=== PATIENT | female | born 1985 | race Caucasian/White ===

== ENCOUNTER 2017-08-05 02:03 | Inpatient (IN) | payer BC, OTHER ==
[2017-08-05] MEDS ORDERED: Ketorolac 30 MG/ML SDV IVPUSH ONE (02:21)
[2017-08-05] MEDS: Ondansetron 4 MG/2 ML SDV IVPUSH ONE ×2 (02:33→06:14)
[2017-08-05] MEDS ORDERED: HYDROmorphone 1 MG/ML Syringe IVPUSH ONE (03:02)
[2017-08-05 03:04] LABS: CHLORIDE,CL 100 mmol/L (98-107); SODIUM,NA 136 mmol/L (136-145)
[2017-08-05] MEDS ORDERED: Sodium Chloride 0.9% 1,000 ML IV ONE (03:22)
[2017-08-05] MEDS ORDERED: cefTRIAXone 1 GM in Premix Bag 1 BAG IV ONE (04:06)
--- NOTE | 2017-08-05 04:10 | EDM.PDOC ---
ED HPI GENERAL MEDICAL PROBLEM - General Chief Complaint: Flank Pain Stated Complaint: BACK PAIN Time Seen by Provider: 08/05/17 04:06 - History of Present Illness INITIAL COMMENTS - FREE TEXT/NARRATIVE: HISTORY AND PHYSICAL: History of present illness: Patient 31-year-old female with history of bilateral flank pain frequency discomfort with urination worse over last 24 hours she started tactile fever nausea but no vomiting. Review of systems: As per history of present illness and below otherwise all systems reviewed and negative. Past medical history: As per history of present illness and as reviewed below otherwise noncontributory. Surgical history: As per history of present illness and as reviewed below otherwise noncontributory. Social history: No reported history of drug or alcohol abuse. Family history: As per history of present illness and as reviewed below otherwise noncontributory. Physical exam: HEENT: Atraumatic, normocephalic, pupils reactive, negative for conjunctival pallor or scleral icterus, mucous membranes moist, throat clear, neck supple, nontender, trachea midline. Lungs: Clear to auscultation, breath sounds equal bilaterally, chest nontender. Heart: S1S2, regular, negative for clicks, rubs, or JVD. Abdomen: Soft, nondistended, nontender. Negative for masses or hepatosplenomegaly. Bilateral costovertebral tenderness. Pelvis: Stable nontender. Genitourinary: Deferred. Rectal: Deferred. Extremities: Atraumatic, negative for cords or calf pain. Neurovascular unremarkable. Neuro: Awake, alert, oriented. Cranial nerves II through XII unremarkable. Cerebellum unremarkable. Motor and sensory unremarkable throughout. Exam nonfocal. Diagnostics: CBC CMP UA urine culture CT abdomen and pelvis culture 2 Therapeutics: Normal saline 1 L bolus Rocephin 1 g IV Impression: #1 pyelonephritis Definitive disposition and diagnosis as appropriate pending reevaluation and review of above. 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: , Spontaneous Musculoskeletal History: Reports: None Neurological History: Reports: None Psychiatric History: Reports: None Endocrine/Metabolic History: Reports: Obesity/BMI 30+ Hematologic History: Reports: Anemia Immunologic History: Reports: None Oncologic (Cancer) History: Reports: None Dermatologic History: Reports: None - Past Surgical History Head Surgeries/Procedures: Reports: None HEENT Surgical History: Reports: Myringotomy w Tube(s), Other (See Below) Female Surgical History: Reports: Section Musculoskeletal Surgical History: Reports: None Social & Family History - Family History Family Medical History: Noncontributory - Tobacco Use Smoking Status *Q: Never Smoker Second Hand Smoke Exposure: No - Caffeine Use Caffeine Use: Reports: Soda - Recreational Drug Use Recreational Drug Use: No Drug Use in Last 12 Months: No ED ROS GENERAL - Review of Systems Review Of Systems: ROS reveals no pertinent complaints other than HPI. ED EXAM, GI/ABD - Physical Exam Exam: See Below (The dictation) Course - Vital Signs Last Recorded V/S: Last Vital Signs Temp 36.4 C 08/05/17 03:00 Pulse 102 H 08/05/17 04:00 Resp 19 08/05/17 03:00 BP 111/70 08/05/17 03:00 Pulse Ox 97 08/05/17 03:00 - Orders/Labs/Meds Orders: Active Orders 24 hr Category Date Time Status Abdomen Pelvis wo Cont [CT] Stat Exams 08/05/17 02:20 Taken CULTURE URINE [RM] Stat Lab 08/05/17 02:40 Ordered HCG QUALITATIVE,URINE [URCHEM] Stat Lab 08/05/17 02:25 Ordered UA W/MICROSCOPIC [URIN] Stat Lab 08/05/17 02:25 Ordered Sodium Chloride 0.9% [Normal Saline] 1,000 ml Med 08/05/17 03:22 Active IV .Bolus cefTRIAXone [Rocephin in Dextrose,Iso-Osm 1 GM/50 ML] 1 Med 08/05/17 04:06 Active gm Premix Bag 1 bag IV ONETIME Medication Orders Sodium Chloride (Normal Saline) 1,000 mls @ 999 mls/hr IV .Bolus ONE Stop: 08/05/17 04:22 Last Admin: 08/05/17 02:30 Dose: 999 mls/hr Ceftriaxone Sodium/Dextrose 1 (gm/ Premix) 50 mls @ 100 mls/hr IV ONETIME ONE Stop: 08/05/17 04:35 Labs: Laboratory Tests 08/05/17 08/05/17 08/05/17 Range/Units 02:25 02:25 02:37 WBC 17.32 H (4.0-11.0) K/uL RBC 4.81 (4.30-5.90) M/uL Hgb 13.0 (12.0-16.0) g/dL Hct 38.7 (36.0-46.0) % MCV 80.5 (80.0-98.0) fL MCH 27.0 (27.0-32.0) pg MCHC 33.6 (31.0-37.0) g/dL RDW Std Deviation 42.2 (28.0-62.0) fl RDW Coeff of Jim 14 (11.0-15.0) % Plt Count 381 (150-400) K/uL MPV 9.10 (7.40-12.00) fL Neut % (Auto) 72.6 (48.0-80.0) % Lymph % (Auto) 14.7 L (16.0-40.0) % [place] % (Auto) 12.3 (0.0-15.0) % Eos % (Auto) 0.2 (0.0-7.0) % Baso % (Auto) 0.2 (0.0-1.5) % Neut # (Auto) 12.6 H (1.4-5.7) K/uL Lymph # (Auto) 2.6 H (0.6-2.4) K/uL [place] # (Auto) 2.1 H (0.0-0.8) K/uL Eos # (Auto) 0.0 (0.0-0.7) K/uL Baso # (Auto) 0.0 (0.0-0.1) K/uL Nucleated RBC % 0.0 /100WBC Nucleated RBCs # 0 K/uL Sodium (136-145) mmol/L Potassium (3.5-5.1) mmol/L Chloride (98-107) mmol/L Carbon Dioxide (21.0-32.0) mmol/L BUN (7.0-18.0) mg/dL Creatinine (0.6-1.0) mg/dL Est Cr Clr Drug Dosing mL/min Estimated GFR (MDRD) ml/min Glucose (74-106) mg/dL Calcium (8.5-10.1) mg/dL Total Bilirubin (0.2-1.0) mg/dL AST (15-37) IU/L ALT (14-63) IU/L Alkaline Phosphatase (46-116) U/L Total Protein (6.4-8.2) g/dL Albumin (3.4-5.0) g/dL Globulin (2.0-3.5) g/dL Albumin/Globulin Ratio (1.3-2.8) Urine Color YELLOW Urine Appearance SLT CLOUDY Urine pH 5.5 (5.0-8.0) Ur Specific [place] 1.015 (1.001-1.035) Urine Protein 100 (NEGATIVE) mg/dL Urine Glucose (UA) NEGATIVE (NEGATIVE) mg/dL Urine Ketones NEGATIVE (NEGATIVE) mg/dL Urine Occult Blood MODERATE (NEGATIVE) Urine Nitrite POSITIVE H (NEGATIVE) Urine Bilirubin NEGATIVE (NEGATIVE) Urine Urobilinogen 0.2 (<2.0) EU/dL Ur Leukocyte Esterase SMALL (NEGATIVE) Urine RBC 1-3 (0-2/HPF) Urine WBC 40-50 (0-5/HPF) Ur Epithelial Cells FEW (NONE-FEW) Urine Bacteria 3+ H (NEGATIVE) Urine HCG, Qual NEGATIVE (NEGATIVE) 08/05/17 Range/Units 02:37 WBC (4.0-11.0) K/uL RBC (4.30-5.90) M/uL Hgb (12.0-16.0) g/dL Hct (36.0-46.0) % MCV (80.0-98.0) fL MCH (27.0-32.0) pg MCHC (31.0-37.0) g/dL RDW Std Deviation (28.0-62.0) fl RDW Coeff of Jim (11.0-15.0) % Plt Count (150-400) K/uL MPV (7.40-12.00) fL Neut % (Auto) (48.0-80.0) % Lymph % (Auto) (16.0-40.0) % [place] % (Auto) (0.0-15.0) % Eos % (Auto) (0.0-7.0) % Baso % (Auto) (0.0-1.5) % Neut # (Auto) (1.4-5.7) K/uL Lymph # (Auto) (0.6-2.4) K/uL [place] # (Auto) (0.0-0.8) K/uL Eos # (Auto) (0.0-0.7) K/uL Baso # (Auto) (0.0-0.1) K/uL Nucleated RBC % /100WBC Nucleated RBCs # K/uL Sodium 136 (136-145) mmol/L Potassium 3.8 (3.5-5.1) mmol/L Chloride 100 (98-107) mmol/L Carbon Dioxide 21.2 (21.0-32.0) mmol/L BUN 13 (7.0-18.0) mg/dL Creatinine 1.0 (0.6-1.0) mg/dL Est Cr Clr Drug Dosing 74.69 mL/min Estimated GFR (MDRD) > 60.0 ml/min Glucose 125 H (74-106) mg/dL Calcium 9.6 (8.5-10.1) mg/dL Total Bilirubin 0.6 (0.2-1.0) mg/dL AST 10 L (15-37) IU/L ALT 12 L (14-63) IU/L Alkaline Phosphatase 79 (46-116) U/L Total Protein 8.2 (6.4-8.2) g/dL Albumin 3.1 L (3.4-5.0) g/dL Globulin 5.1 H (2.0-3.5) g/dL Albumin/Globulin Ratio 0.6 L (1.3-2.8) Urine Color Urine Appearance Urine pH (5.0-8.0) Ur Specific [place] (1.001-1.035) Urine Protein (NEGATIVE) mg/dL Urine Glucose (UA) (NEGATIVE) mg/dL Urine Ketones (NEGATIVE) mg/dL Urine Occult Blood (NEGATIVE) Urine Nitrite (NEGATIVE) Urine Bilirubin (NEGATIVE) Urine Urobilinogen (<2.0) EU/dL Ur Leukocyte Esterase (NEGATIVE) Urine RBC (0-2/HPF) Urine WBC (0-5/HPF) Ur Epithelial Cells (NONE-FEW) Urine Bacteria (NEGATIVE) Urine HCG, Qual (NEGATIVE) Meds: Medications Generic Name Dose Route Start Last Admin Trade Name Freq PRN Reason Stop Dose Admin Sodium Chloride 1,000 mls @ 999 mls/hr 08/05/17 03:22 08/05/17 02:30 Normal Saline IV 08/05/17 04:22 999 mls/hr .Bolus ONE Administration Ceftriaxone Sodium/Dextrose 1 50 mls @ 100 mls/hr 08/05/17 04:06 gm/ Premix IV 08/05/17 04:35 ONETIME ONE Discontinued Medications Generic Name Dose Route Start Last Admin Trade Name Freq PRN Reason Stop Dose Admin Hydromorphone HCl 1 mg 08/05/17 03:02 08/05/17 03:16 Dilaudid IVPUSH 08/05/17 03:03 1 mg ONETIME ONE Administration Ketorolac Tromethamine 30 mg 08/05/17 02:21 08/05/17 02:34 Toradol IVPUSH 08/05/17 02:22 30 mg ONETIME ONE Administration Ondansetron HCl 4 mg 08/05/17 02:22 08/05/17 02:33 Zofran IVPUSH 08/05/17 02:23 4 mg ONETIME ONE Administration Departure - Departure Time of Disposition: 04:10 Disposition: Home, Self-Care 01 Condition: Good Clinical Impression: Pyelonephritis - Discharge Information Referrals: PCP,None [Primary Care Provider] - - My Orders Last 24 Hours: My Active Orders 08/05/17 02:20 Abdomen Pelvis wo Cont [CT] Stat 08/05/17 02:25 HCG QUALITATIVE,URINE [URCHEM] Stat UA W/MICROSCOPIC [URIN] Stat 08/05/17 02:40 CULTURE URINE [RM] Stat 08/05/17 03:22 Sodium Chloride 0.9% [Normal Saline] 1,000 ml IV .Bolus 08/05/17 04:06 cefTRIAXone [Rocephin in Dextrose,Iso-Osm 1 GM/50 ML] 1 gm Premix Bag 1 bag IV ONETIME - Assessment/Plan Last 24 Hours: My Active Orders 08/05/17 02:20 Abdomen Pelvis wo Cont [CT] Stat 08/05/17 02:25 HCG QUALITATIVE,URINE [URCHEM] Stat UA W/MICROSCOPIC [URIN] Stat 08/05/17 02:40 CULTURE URINE [RM] Stat 08/05/17 03:22 Sodium Chloride 0.9% [Normal Saline] 1,000 ml IV .Bolus 08/05/17 04:06 cefTRIAXone [Rocephin in Dextrose,Iso-Osm 1 GM/50 ML] 1 gm Premix Bag 1 bag IV ONETIME
[2017-08-05] MEDS: Acetaminophen 325 MG Tab PO PRN ×3 (11:24→19:30)
--- NOTE | 2017-08-05 15:52 | PCM.HP ---
H&P History of Present Illness - General Admit Problem/Dx: Admission Diagnosis/Problem Admission Diagnosis/Problem Pyelonephritis - History of Present Illness Initial Comments - Free Text/Narative: 31 yo female who presented with bilateral flank pain, subjective fevers and dysuria. CT scan of abdomen performed in ED reported left perirenal stranding as well as bladder wall thickening, no obstructive uropathy. left flank Pain Score (Numeric/FACES): 4 - Related Data Allergies/Adverse Reactions: Allergies Allergy/AdvReac Type Severity Reaction Status Date / Time ibuprofen Allergy Nausea and Verified 08/05/17 02:16 Vomiting Home Medications: Home Meds Control 08/05/17 [History] Cholecalciferol (Vitamin D3) [Vitamin D] 1 tab PO DAILY 08/05/17 [History] Past Medical History - Past Health History Medical/Surgical History: Denies Medical/Surgical History HEENT History: Reports: Impaired Vision Cardiovascular History: Reports: None Respiratory History: Reports: None Gastrointestinal History: Reports: None Genitourinary History: Reports: UTI, Recurrent 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: , Spontaneous Musculoskeletal History: Reports: None Neurological History: Reports: None Psychiatric History: Reports: None Endocrine/Metabolic History: Reports: Obesity/BMI 30+ Hematologic History: Reports: Anemia Immunologic History: Reports: None Oncologic (Cancer) History: Reports: None Dermatologic History: Reports: None - Infectious Disease History Infectious Disease History: Reports: None - Past Surgical History Head Surgeries/Procedures: Reports: None HEENT Surgical History: Reports: Myringotomy w Tube(s), Other (See Below) Cardiovascular Surgical History: Reports: None Respiratory Surgical History: Reports: None GI Surgical History: Reports: None Female Surgical History: Reports: Section Endocrine Surgical History: Reports: None Musculoskeletal Surgical History: Reports: None Social & Family History - Family History Family Medical History: Noncontributory - Tobacco Use Smoking Status *Q: Never Smoker Second Hand Smoke Exposure: No - Caffeine Use Caffeine Use: Reports: Soda - Recreational Drug Use Recreational Drug Use: No Drug Use in Last 12 Months: No H&P Review of Systems - Review of Systems: Review Of Systems: ROS reveals no pertinent complaints other than HPI. Exam - Exam Exam: See Below - Vital Signs Vital Signs: Last Vital Signs Temp 36.6 C 08/05/17 15:44 Pulse 92 08/05/17 15:44 Resp 18 04/01/18 15:44 BP 117/71 08/05/17 15:44 Pulse Ox 98 08/05/17 15:44 Weight: 117.7 kg - Exam General: Alert, Oriented HEENT: Mucosa Moist & [place] Lungs: Clear to Auscultation, Normal Respiratory Effort Cardiovascular: Regular Rate, Regular Rhythm GI/Abdominal Exam: Soft, Non-Tender Back Exam: CVA Tenderness (L), CVA Tenderness (R) Skin: Warm, Dry, Intact - Patient Data Lab Results Last 24 hrs: Laboratory Results - last 24 hr 08/05/17 08/05/17 08/05/17 Range/Units 02:25 02:25 02:37 WBC 17.32 H (4.0-11.0) K/uL RBC 4.81 (4.30-5.90) M/uL Hgb 13.0 (12.0-16.0) g/dL Hct 38.7 (36.0-46.0) % MCV 80.5 (80.0-98.0) fL MCH 27.0 (27.0-32.0) pg MCHC 33.6 (31.0-37.0) g/dL RDW Std Deviation 42.2 (28.0-62.0) fl RDW Coeff of Jim 14 (11.0-15.0) % Plt Count 381 (150-400) K/uL MPV 9.10 (7.40-12.00) fL Neut % (Auto) 72.6 (48.0-80.0) % Lymph % (Auto) 14.7 L (16.0-40.0) % [place] % (Auto) 12.3 (0.0-15.0) % Eos % (Auto) 0.2 (0.0-7.0) % Baso % (Auto) 0.2 (0.0-1.5) % Neut # (Auto) 12.6 H (1.4-5.7) K/uL Lymph # (Auto) 2.6 H (0.6-2.4) K/uL [place] # (Auto) 2.1 H (0.0-0.8) K/uL Eos # (Auto) 0.0 (0.0-0.7) K/uL Baso # (Auto) 0.0 (0.0-0.1) K/uL Nucleated RBC % 0.0 /100WBC Nucleated RBCs # 0 K/uL Sodium (136-145) mmol/L Potassium (3.5-5.1) mmol/L Chloride (98-107) mmol/L Carbon Dioxide (21.0-32.0) mmol/L BUN (7.0-18.0) mg/dL Creatinine (0.6-1.0) mg/dL Est Cr Clr Drug Dosing mL/min Estimated GFR (MDRD) ml/min Glucose (74-106) mg/dL Calcium (8.5-10.1) mg/dL Total Bilirubin (0.2-1.0) mg/dL AST (15-37) IU/L ALT (14-63) IU/L Alkaline Phosphatase (46-116) U/L Total Protein (6.4-8.2) g/dL Albumin (3.4-5.0) g/dL Globulin (2.0-3.5) g/dL Albumin/Globulin Ratio (1.3-2.8) Urine Color YELLOW Urine Appearance SLT CLOUDY Urine pH 5.5 (5.0-8.0) Ur Specific [place] 1.015 (1.001-1.035) Urine Protein 100 (NEGATIVE) mg/dL Urine Glucose (UA) NEGATIVE (NEGATIVE) mg/dL Urine Ketones NEGATIVE (NEGATIVE) mg/dL Urine Occult Blood MODERATE (NEGATIVE) Urine Nitrite POSITIVE H (NEGATIVE) Urine Bilirubin NEGATIVE (NEGATIVE) Urine Urobilinogen 0.2 (<2.0) EU/dL Ur Leukocyte Esterase SMALL (NEGATIVE) Urine RBC 1-3 (0-2/HPF) Urine WBC 40-50 (0-5/HPF) Ur Epithelial Cells FEW (NONE-FEW) Urine Bacteria 3+ H (NEGATIVE) Urine HCG, Qual NEGATIVE (NEGATIVE) 08/05/17 Range/Units 02:37 WBC (4.0-11.0) K/uL RBC (4.30-5.90) M/uL Hgb (12.0-16.0) g/dL Hct (36.0-46.0) % MCV (80.0-98.0) fL MCH (27.0-32.0) pg MCHC (31.0-37.0) g/dL RDW Std Deviation (28.0-62.0) fl RDW Coeff of Jim (11.0-15.0) % Plt Count (150-400) K/uL MPV (7.40-12.00) fL Neut % (Auto) (48.0-80.0) % Lymph % (Auto) (16.0-40.0) % [place] % (Auto) (0.0-15.0) % Eos % (Auto) (0.0-7.0) % Baso % (Auto) (0.0-1.5) % Neut # (Auto) (1.4-5.7) K/uL Lymph # (Auto) (0.6-2.4) K/uL [place] # (Auto) (0.0-0.8) K/uL Eos # (Auto) (0.0-0.7) K/uL Baso # (Auto) (0.0-0.1) K/uL Nucleated RBC % /100WBC Nucleated RBCs # K/uL Sodium 136 (136-145) mmol/L Potassium 3.8 (3.5-5.1) mmol/L Chloride 100 (98-107) mmol/L Carbon Dioxide 21.2 (21.0-32.0) mmol/L BUN 13 (7.0-18.0) mg/dL Creatinine 1.0 (0.6-1.0) mg/dL Est Cr Clr Drug Dosing 74.69 mL/min Estimated GFR (MDRD) > 60.0 ml/min Glucose 125 H (74-106) mg/dL Calcium 9.6 (8.5-10.1) mg/dL Total Bilirubin 0.6 (0.2-1.0) mg/dL AST 10 L (15-37) IU/L ALT 12 L (14-63) IU/L Alkaline Phosphatase 79 (46-116) U/L Total Protein 8.2 (6.4-8.2) g/dL Albumin 3.1 L (3.4-5.0) g/dL Globulin 5.1 H (2.0-3.5) g/dL Albumin/Globulin Ratio 0.6 L (1.3-2.8) Urine Color Urine Appearance Urine pH (5.0-8.0) Ur Specific [place] (1.001-1.035) Urine Protein (NEGATIVE) mg/dL Urine Glucose (UA) (NEGATIVE) mg/dL Urine Ketones (NEGATIVE) mg/dL Urine Occult Blood (NEGATIVE) Urine Nitrite (NEGATIVE) Urine Bilirubin (NEGATIVE) Urine Urobilinogen (<2.0) EU/dL Ur Leukocyte Esterase (NEGATIVE) Urine RBC (0-2/HPF) Urine WBC (0-5/HPF) Ur Epithelial Cells (NONE-FEW) Urine Bacteria (NEGATIVE) Urine HCG, Qual (NEGATIVE) Result Diagrams: 08/06/17 05:49 08/06/17 05:49 Problem List Initiated/Reviewed/Updated: Yes Orders Last 24hrs: Active Orders 24 hr Category Date Time Status Patient Status [ADT] Stat ADT 08/05/17 04:11 Active Oxygen Therapy [RC] PRN Care 08/05/17 15:47 Ordered Up ad Gail [RC] ASDIRECTED Care 08/05/17 15:47 Ordered VTE/DVT Education [RC] PER UNIT ROUTINE Care 08/05/17 15:47 Ordered Vital Signs [RC] Q4H Care 08/05/17 15:47 Ordered Regular Diet [DIET] Diet 08/05/17 Breakfast Active Abdomen Pelvis wo Cont [CT] Stat Exams 08/05/17 02:20 Taken BASIC METABOLIC PANEL,BMP [CHEM] AM Lab 08/06/17 05:11 Ordered BASIC METABOLIC PANEL,BMP [CHEM] AM Lab 08/07/17 05:11 Ordered CBC WITH AUTO DIFF [HEME] AM Lab 08/06/17 05:11 Ordered CBC WITH AUTO DIFF [HEME] AM Lab 08/07/17 05:11 Ordered CULTURE BLOOD [BC] Stat Lab 08/05/17 04:24 Received CULTURE BLOOD [BC] Stat Lab 08/05/17 04:33 Received CULTURE URINE [RM] Stat Lab 08/05/17 02:25 Ordered HCG QUALITATIVE,URINE [URCHEM] Stat Lab 08/05/17 02:25 Ordered UA W/MICROSCOPIC [URIN] Stat Lab 08/05/17 02:25 Ordered Acetaminophen [Tylenol] Med 08/05/17 05:09 Active 650 mg PO Q4H PRN Enoxaparin [Lovenox] Med 08/05/17 16:00 Ordered 40 mg SUBCUT Q24H Morphine Med 08/05/17 15:47 Ordered 2 mg IVPUSH Q2H PRN Ondansetron [Zofran] Med 08/05/17 05:09 Active 4 mg IVPUSH Q4H PRN cefTRIAXone [Rocephin in Dextrose,Iso-Osm 1 GM/50 ML] 1 Med 08/06/17 04:00 Active gm Premix Bag 1 bag IV Q24H traMADol [Ultram] Med 08/05/17 15:48 Ordered 50 mg PO Q4H PRN Blood Culture x2 Reflex Set [OM.PC] Stat Oth 08/05/17 04:09 Ordered Sequential Compression Device [OM.PC] Per Unit Routine Oth 08/05/17 15:47 Ordered Resuscitation Status Routine Resus Stat 08/05/17 15:47 Ordered Medication Orders Acetaminophen (Tylenol) 650 mg PO Q4H PRN PRN Reason: Pain Last Admin: 08/05/17 15:15 Dose: 650 mg Admin: 08/05/17 11:24 Dose: 650 mg Ceftriaxone Sodium/Dextrose 1 (gm/ Premix) 50 mls @ 100 mls/hr IV Q24H RIZ[place]NA Ondansetron HCl (Zofran) 4 mg IVPUSH Q4H PRN PRN Reason: Nausea/Vomiting Assessment/Plan Comment:: 31 yo female admitted with pyeloephritis. We will treat with Rocephin and IV fluids. Urine cultures are pending.
[2017-08-05] MEDS ORDERED: Sodium Chloride 0.9% 1,000 ML IV SCH (16:00)
[2017-08-05] MEDS: traMADol 50 MG Tab PO PRN ×2 (16:08→21:18)
[2017-08-05] MEDS: Enoxaparin 40 MG/0.4 ML Syringe SUBCUT SCH (16:12)
[2017-08-05] MEDS: Morphine 4 MG/ML Syringe IVPUSH PRN ×2 (17:45→20:07)
[2017-08-06] MEDS: Morphine 4 MG/ML Syringe IVPUSH PRN ×4 (04:36→14:19)
[2017-08-06] MEDS: cefTRIAXone 1 GM in Premix Bag 1 BAG IV SCH (04:39)
[2017-08-06 06:17] LABS: CHLORIDE,CL 103 mmol/L (98-107); SODIUM,NA 137 mmol/L (136-145)
[2017-08-06] MEDS: traMADol 50 MG Tab PO PRN ×4 (07:13→20:16)
[2017-08-06] MEDS ORDERED: Ondansetron 4 MG/2 ML SDV IVPUSH PRN (10:19)
[2017-08-06] MEDS: Ondansetron 4 MG/2 ML SDV IVPUSH PRN ×2 (11:08→20:15)
--- NOTE | 2017-08-06 11:10 | PCM.PN ---
- General Info Date of Service: 08/06/17 - Patient Data Vitals - Most Recent: Last Vital Signs Temp 36.3 C 08/06/17 07:44 Pulse 100 08/06/17 07:44 Resp 22 H 08/06/17 07:44 BP 125/78 08/06/17 07:44 Pulse Ox 96 08/06/17 07:44 Weight - Most Recent: 117.7 kg I&O - Last 24 Hours: Intake & Output 08/05/17 08/06/17 08/06/17 22:59 06:59 14:59 Intake Total 800 2448 Output Total 625 1900 Balance 175 548 Lab Results Last 24 Hours: Laboratory Results - last 24 hr 08/06/17 08/06/17 Range/Units 05:49 05:49 WBC 13.12 H (4.0-11.0) K/uL RBC 4.16 L (4.30-5.90) M/uL Hgb 11.0 L (12.0-16.0) g/dL Hct 34.4 L (36.0-46.0) % MCV 82.7 (80.0-98.0) fL MCH 26.4 L (27.0-32.0) pg MCHC 32.0 (31.0-37.0) g/dL RDW Std Deviation 44.0 (28.0-62.0) fl RDW Coeff of Jim 15 (11.0-15.0) % Plt Count 350 (150-400) K/uL MPV 9.20 (7.40-12.00) fL Neut % (Auto) 68.7 (48.0-80.0) % Lymph % (Auto) 21.0 (16.0-40.0) % [place] % (Auto) 9.2 (0.0-15.0) % Eos % (Auto) 0.9 (0.0-7.0) % Baso % (Auto) 0.2 (0.0-1.5) % Neut # (Auto) 9.0 H (1.4-5.7) K/uL Lymph # (Auto) 2.8 H (0.6-2.4) K/uL [place] # (Auto) 1.2 H (0.0-0.8) K/uL Eos # (Auto) 0.1 (0.0-0.7) K/uL Baso # (Auto) 0.0 (0.0-0.1) K/uL Nucleated RBC % 0.0 /100WBC Nucleated RBCs # 0 K/uL Sodium 137 (136-145) mmol/L Potassium 4.6 (3.5-5.1) mmol/L Chloride 103 (98-107) mmol/L Carbon Dioxide 25.3 (21.0-32.0) mmol/L BUN 13 (7.0-18.0) mg/dL Creatinine 0.9 (0.6-1.0) mg/dL Est Cr Clr Drug Dosing 82.86 mL/min Estimated GFR (MDRD) > 60.0 ml/min Glucose 115 H (74-106) mg/dL Calcium 8.6 (8.5-10.1) mg/dL [place] Results Last 24 Hours: Microbiology 08/05/17 04:33 Aerobic Blood Culture - Preliminary Blood - Venous - Lab Draw NO GROWTH AFTER 1 DAY Anaerobic Blood Culture - Preliminary NO GROWTH AFTER 1 DAY 08/05/17 04:24 Aerobic Blood Culture - Preliminary Blood - Venous NO GROWTH AFTER 1 DAY Anaerobic Blood Culture - Preliminary NO GROWTH AFTER 1 DAY Med Orders - Current: Current Medications Acetaminophen (Tylenol) 650 mg PO Q4H PRN PRN Reason: Pain Last Admin: 08/05/17 19:30 Dose: 650 mg Enoxaparin Sodium (Lovenox) 40 mg SUBCUT Q24H ON LICENSE OF [facility] Last Admin: 08/05/17 16:12 Dose: 40 mg Ceftriaxone Sodium/Dextrose 1 (gm/ Premix) 50 mls @ 100 mls/hr IV Q24H ON LICENSE OF [facility] Last Infusion: 08/06/17 05:10 Dose: Infused Morphine Sulfate (Morphine) 2 mg IVPUSH Q2H PRN PRN Reason: Pain (severe 7-10) Stop: 08/06/17 15:48 Last Admin: 08/06/17 11:08 Dose: 2 mg Ondansetron HCl (Zofran) 4 mg IVPUSH Q4H PRN PRN Reason: Nausea/Vomiting Last Admin: 08/06/17 11:08 Dose: 4 mg Ondansetron HCl (Zofran) 4 mg IVPUSH ONETIME PRN PRN Reason: Nausea/Vomiting Tramadol HCl (Ultram) 50 mg PO Q4H PRN PRN Reason: Pain Last Admin: 08/06/17 07:13 Dose: 50 mg Discontinued Medications Hydromorphone HCl (Dilaudid) 1 mg IVPUSH ONETIME ONE Stop: 08/05/17 03:03 Last Admin: 08/05/17 03:16 Dose: 1 mg Sodium Chloride (Normal Saline) 1,000 mls @ 999 mls/hr IV .Bolus ONE Stop: 08/05/17 04:22 Last Admin: 08/05/17 02:30 Dose: 999 mls/hr Ceftriaxone Sodium/Dextrose 1 (gm/ Premix) 50 mls @ 100 mls/hr IV ONETIME ONE Stop: 08/05/17 04:35 Last Admin: 08/05/17 04:28 Dose: 100 mls/hr Sodium Chloride (Normal Saline) 1,000 mls @ 125 mls/hr IV ASDIRECTED RIZWANA Stop: 08/06/17 00:56 Last Infusion: 08/06/17 00:04 Dose: 125 mls/hr Ketorolac Tromethamine (Toradol) 30 mg IVPUSH ONETIME ONE Stop: 08/05/17 02:22 Last Admin: 08/05/17 02:34 Dose: 30 mg Ondansetron HCl (Zofran) 4 mg IVPUSH ONETIME ONE Stop: 08/05/17 02:23 Last Admin: 08/05/17 06:14 Dose: Not Given - My Orders Last 24 Hours: My Active Orders 08/06/17 10:19 Ondansetron [Zofran] 4 mg IVPUSH ONETIME PRN - Plan Plan:: 31 yo female admitted with pyeloephritis. We will treat with Rocephin and IV fluids. Urine cultures are pending.
--- NOTE | 2017-08-06 11:52 | PCM.PN ---
- General Info Date of Service: 08/06/17 Admission Dx/Problem (Free Text): Patient is feeling slightly better than yesterday, she is only having left- sided flank pain at this point in time, she was mildly nauseous and had received a dose of Zofran, and she did have left flank pain that was getting slightly worse and the patient was given more pain medications. - Patient Data Vitals - Most Recent: Last Vital Signs Temp 36.3 C 08/06/17 07:44 Pulse 100 08/06/17 07:44 Resp 22 H 08/06/17 07:44 BP 125/78 08/06/17 07:44 Pulse Ox 96 08/06/17 07:44 Weight - Most Recent: 117.7 kg I&O - Last 24 Hours: Intake & Output 08/05/17 08/06/17 08/06/17 22:59 06:59 14:59 Intake Total 800 2448 Output Total 625 1900 Balance 175 548 Lab Results Last 24 Hours: Laboratory Results - last 24 hr 08/06/17 08/06/17 Range/Units 05:49 05:49 WBC 13.12 H (4.0-11.0) K/uL RBC 4.16 L (4.30-5.90) M/uL Hgb 11.0 L (12.0-16.0) g/dL Hct 34.4 L (36.0-46.0) % MCV 82.7 (80.0-98.0) fL MCH 26.4 L (27.0-32.0) pg MCHC 32.0 (31.0-37.0) g/dL RDW Std Deviation 44.0 (28.0-62.0) fl RDW Coeff of Jim 15 (11.0-15.0) % Plt Count 350 (150-400) K/uL MPV 9.20 (7.40-12.00) fL Neut % (Auto) 68.7 (48.0-80.0) % Lymph % (Auto) 21.0 (16.0-40.0) % [place] % (Auto) 9.2 (0.0-15.0) % Eos % (Auto) 0.9 (0.0-7.0) % Baso % (Auto) 0.2 (0.0-1.5) % Neut # (Auto) 9.0 H (1.4-5.7) K/uL Lymph # (Auto) 2.8 H (0.6-2.4) K/uL [place] # (Auto) 1.2 H (0.0-0.8) K/uL Eos # (Auto) 0.1 (0.0-0.7) K/uL Baso # (Auto) 0.0 (0.0-0.1) K/uL Nucleated RBC % 0.0 /100WBC Nucleated RBCs # 0 K/uL Sodium 137 (136-145) mmol/L Potassium 4.6 (3.5-5.1) mmol/L Chloride 103 (98-107) mmol/L Carbon Dioxide 25.3 (21.0-32.0) mmol/L BUN 13 (7.0-18.0) mg/dL Creatinine 0.9 (0.6-1.0) mg/dL Est Cr Clr Drug Dosing 82.86 mL/min Estimated GFR (MDRD) > 60.0 ml/min Glucose 115 H (74-106) mg/dL Calcium 8.6 (8.5-10.1) mg/dL Santosh Results Last 24 Hours: Microbiology 08/05/17 04:33 Aerobic Blood Culture - Preliminary Blood - Venous - Lab Draw NO GROWTH AFTER 1 DAY Anaerobic Blood Culture - Preliminary NO GROWTH AFTER 1 DAY 08/05/17 04:24 Aerobic Blood Culture - Preliminary Blood - Venous NO GROWTH AFTER 1 DAY Anaerobic Blood Culture - Preliminary NO GROWTH AFTER 1 DAY Med Orders - Current: Current Medications Acetaminophen (Tylenol) 650 mg PO Q4H PRN PRN Reason: Pain Last Admin: 08/05/17 19:30 Dose: 650 mg Enoxaparin Sodium (Lovenox) 40 mg SUBCUT Q24H [facility] Last Admin: 08/05/17 16:12 Dose: 40 mg Ceftriaxone Sodium/Dextrose 1 (gm/ Premix) 50 mls @ 100 mls/hr IV Q24H [facility] Last Infusion: 08/06/17 05:10 Dose: Infused Morphine Sulfate (Morphine) 2 mg IVPUSH Q2H PRN PRN Reason: Pain (severe 7-10) Stop: 08/06/17 15:48 Last Admin: 08/06/17 11:08 Dose: 2 mg Ondansetron HCl (Zofran) 4 mg IVPUSH Q4H PRN PRN Reason: Nausea/Vomiting Last Admin: 08/06/17 11:08 Dose: 4 mg Ondansetron HCl (Zofran) 4 mg IVPUSH ONETIME PRN PRN Reason: Nausea/Vomiting Tramadol HCl (Ultram) 50 mg PO Q4H PRN PRN Reason: Pain Last Admin: 08/06/17 07:13 Dose: 50 mg Discontinued Medications Hydromorphone HCl (Dilaudid) 1 mg IVPUSH ONETIME ONE Stop: 08/05/17 03:03 Last Admin: 08/05/17 03:16 Dose: 1 mg Sodium Chloride (Normal Saline) 1,000 mls @ 999 mls/hr IV .Bolus ONE Stop: 08/05/17 04:22 Last Admin: 08/05/17 02:30 Dose: 999 mls/hr Ceftriaxone Sodium/Dextrose 1 (gm/ Premix) 50 mls @ 100 mls/hr IV ONETIME ONE Stop: 08/05/17 04:35 Last Admin: 08/05/17 04:28 Dose: 100 mls/hr Sodium Chloride (Normal Saline) 1,000 mls @ 125 mls/hr IV ASDIRECTED [facility] Stop: 08/06/17 00:56 Last Infusion: 08/06/17 00:04 Dose: 125 mls/hr Ketorolac Tromethamine (Toradol) 30 mg IVPUSH ONETIME ONE Stop: 08/05/17 02:22 Last Admin: 08/05/17 02:34 Dose: 30 mg Ondansetron HCl (Zofran) 4 mg IVPUSH ONETIME ONE Stop: 08/05/17 02:23 Last Admin: 08/05/17 06:14 Dose: Not Given - Exam General: Alert, Oriented, Cooperative, Mild Distress Lungs: Clear to Auscultation, Normal Respiratory Effort Cardiovascular: Regular Rate, Regular Rhythm Back Exam: Other (Flank pain left side) Extremities: Normal Inspection, Normal Range of Motion - Problem List Review Problem List Initiated/Reviewed/Updated: Yes - My Orders Last 24 Hours: My Active Orders 08/06/17 10:19 Ondansetron [Zofran] 4 mg IVPUSH ONETIME PRN - Plan Plan:: This is a 31-year-old female that is presenting initially with symptoms of tactile fever, bilateral flank pain, leukocytosis with a neutrophilic shift, CT of the abdomen and pelvis indicating left perirenal stranding and thickening of the bladder wall most likely etiology is pyelonephritis. Patient's previous urine culture showed an intermediate resistance to Rocephin which the patient is currently on however the patient's leukocytosis has decreased from admission until now. We will continue with the ceftriaxone until the current urine culture comes back and we will then switch over to an antibiotic that is more suitable. Patient still has pain medication and nausea medication on board shall continue to monitor the patient.
--- NOTE | 2017-08-06 13:15 | CT ---
EXAM DATE: 08/05/17 PATIENT'S AGE: 31 Patient: CAROLA MCDONOUGH Facility: [place], [place] Site . Site : 1985 Study: CT Abdomen/Pelvis W/O [id number]/1/2018 2:58:07 AM Ordering Physician: Doctor Malave Final Report: INDICATION: Left flank pain TECHNIQUE: CT abdomen and pelvis without contrast. COMPARISON: None available FINDINGS: Lower chest: Unremarkable. Liver: Unremarkable. Spleen: Unremarkable. Pancreas: Unremarkable. Gallbladder and bile ducts: Unremarkable. Adrenal glands: Unremarkable. Kidneys: No hydronephrosis or discrete urolithiasis. Left renal upper pole scarring with stranding in the superior left perirenal space. GI tract: Unremarkable. Appendix is normal. Vascular structures: Unremarkable. Lymph nodes: Unremarkable. Miscellaneous: Unremarkable. No free air or significant free fluid. Pelvic Organs: Bladder wall thickening. No discrete uterine abnormality seen. Bones: A partially calcified L5-S1 disk protrusion. IMPRESSION: No obstructive uropathy or discrete urolithiasis. Left perirenal stranding as well as bladder wall thickening, suggestive of a UTI. Correlate with urinalysis. Dictated by Addison Nelson MD @ 08/05/2017 3:11:14 AM Dictated by: Addison Nelson MD @ 08/05/2017 03:11:18 (Electronic Signature) Report Signed by Proxy. [facility] LANG[facility] HEALTH SYSTEMHaydee
[2017-08-06] MEDS: Enoxaparin 40 MG/0.4 ML Syringe SUBCUT SCH (15:25)
[2017-08-06] MEDS ORDERED: diphenhydrAMINE 50 MG/ML SDV IVPUSH ONE (17:18)
[2017-08-07] MEDS: traMADol 50 MG Tab PO PRN ×2 (00:18→07:52)
[2017-08-07] MEDS: cefTRIAXone 1 GM in Premix Bag 1 BAG IV SCH (03:14)
[2017-08-07] MEDS: Acetaminophen 325 MG Tab PO PRN ×2 (04:01→09:51)
[2017-08-07 05:58] LABS: CHLORIDE,CL 106 mmol/L (98-107); SODIUM,NA 138 mmol/L (136-145)
--- NOTE | 2017-08-07 10:24 | PCM.DCSUM1 ---
<QuintonKeagan Z - Last Filed: 08/13/17 02:22> Discharge Summary - Hospital Course HPI Initial Comments: Discharge Summary Date of admission: 08/05/2017 Date of discharge: 08/07/2017 Admitting diagnosis: #1. Bilateral flank pain, subjective fever, a UA positive for infection likely secondary to pyelonephritis #2. Leukocytosis secondary to #1 #3. #4. #5. Discharge diagnoses: #1. Pyelonephritis now resolving, pain improving #2. Leukocytosis now resolved #3. #4. #5. Consultations: None Procedures: None Hospitalization course: Patient was admitted to the floor secondary to bilateral flank pain, fever, leukocytosis patient was placed upon Rocephin initially for antibiotic coverage of pyelonephritis. Pain coverage, nausea coverage was in place for the patient's symptoms, patient progressively did well , ensured adequate hydration of the kidneys through IV fluids. Patient's symptoms progressively improved, and date. Admission patient's leukocytosis haven't improved she is primarily complaining of left-sided flank pain and was still slightly nauseous as such the patient was required to stay another night due to inability to tolerate by mouth, as well the patient's previous urine culture had indicated intermediate resistance to ceftriaxone and there was concern that there could be a possibility the patient may require more intense antibiotics however by date of discharge the current urine culture had come back indicating that the Escherichia coli was now was fully sensitive to ceftriaxone as well as Keflex and the patient was then subsequently discharged home on Keflex as she was symptomatically stable, pain was controlled, patient was able to tolerate by mouth without any difficulty. Disposition on discharge: Home Condition on discharge: Stable - Discharge Data Discharge Date: 08/07/17 Discharge Disposition: Home, Self-Care 01 Condition: Fair - Patient Instructions Diet: Usual Diet as Tolerated, Drink 8-10+ Glasses/Day, No Alcoholic Beverages Activity: As Tolerated Driving: Do Not Drive Showering/Bathing: May Shower Notify Provider of: Fever, Increased Pain, Swelling and Redness, Drainage, Nausea and/or Vomiting - Discharge Plan Prescriptions/Med Rec: Acetaminophen [Acetaminophen Extra Strength] 500 mg PO Q6H PRN 5 Days #50 tablet PRN Reason: Pain Cephalexin [Keflex] 500 mg PO Q8H 11 Days #33 cap traMADol [Ultram] 50 mg PO Q6H PRN #10 tab PRN Reason: Pain Home Medications: Home Meds Control 08/05/17 [History] Cholecalciferol (Vitamin D3) [Vitamin D] 1 tab PO DAILY 08/05/17 [History] Acetaminophen [Acetaminophen Extra Strength] 500 mg PO Q6H PRN 5 Days #50 tablet 08/07/17 [Rx] Cephalexin [Keflex] 500 mg PO Q8H 11 Days #33 cap 08/07/17 [Rx] traMADol [Ultram] 50 mg PO Q6H PRN #10 tab 08/07/17 [Rx] Patient Handouts: Pyelonephritis, Adult, [id number], Tramadol tablets, Urinary Tract Infection, Adult, [id number], Acetaminophen tablets or caplets, Cephalexin tablets or capsules Referrals: Evan Bowens MD [Physician] - 08/17/17 9:00 am - Discharge Summary/Plan Comment DC Time >30 min.: No - Patient Data Vitals - Most Recent: Last Vital Signs Temp 35.8 C 08/07/17 08:00 Pulse 83 08/07/17 08:00 Resp 18 08/07/17 08:00 BP 108/60 08/07/17 08:00 Pulse Ox 98 08/07/17 08:00 Weight - Most Recent: 117.7 kg I&O - Last 24 hours: Intake & Output 08/06/17 08/07/17 08/07/17 22:59 06:59 14:59 Intake Total 1240 650 Output Total 1400 900 Balance -160 -250 Lab Results - Last 24 hrs: Laboratory Results - last 24 hr 08/07/17 08/07/17 Range/Units 05:35 05:35 WBC 9.56 (4.0-11.0) K/uL RBC 4.07 L (4.30-5.90) M/uL Hgb 10.7 L (12.0-16.0) g/dL Hct 33.4 L (36.0-46.0) % MCV 82.1 (80.0-98.0) fL MCH 26.3 L (27.0-32.0) pg MCHC 32.0 (31.0-37.0) g/dL RDW Std Deviation 43.5 (28.0-62.0) fl RDW Coeff of Jim 15 (11.0-15.0) % Plt Count 346 (150-400) K/uL MPV 8.90 (7.40-12.00) fL Neut % (Auto) 54.2 (48.0-80.0) % Lymph % (Auto) 34.7 (16.0-40.0) % [place] % (Auto) 8.6 (0.0-15.0) % Eos % (Auto) 2.3 (0.0-7.0) % Baso % (Auto) 0.2 (0.0-1.5) % Neut # (Auto) 5.2 (1.4-5.7) K/uL Lymph # (Auto) 3.3 H (0.6-2.4) K/uL [place] # (Auto) 0.8 (0.0-0.8) K/uL Eos # (Auto) 0.2 (0.0-0.7) K/uL Baso # (Auto) 0.0 (0.0-0.1) K/uL Nucleated RBC % 0.0 /100WBC Nucleated RBCs # 0 K/uL Sodium 138 (136-145) mmol/L Potassium 3.9 (3.5-5.1) mmol/L Chloride 106 (98-107) mmol/L Carbon Dioxide 22.2 (21.0-32.0) mmol/L BUN 12 (7.0-18.0) mg/dL Creatinine 0.8 (0.6-1.0) mg/dL Est Cr Clr Drug Dosing 93.22 mL/min Estimated GFR (MDRD) > 60.0 ml/min Glucose 112 H (74-106) mg/dL Calcium 8.9 (8.5-10.1) mg/dL TERESA Results - Last 24 hrs: Microbiology 08/05/17 02:25 Urine Culture - Final Urine, Clean Catch Escherichia Coli Normal Urogenital Krista 08/05/17 04:33 Aerobic Blood Culture - Preliminary Blood - Venous - Lab Draw NO GROWTH AFTER 2 DAYS Anaerobic Blood Culture - Preliminary NO GROWTH AFTER 2 DAYS 08/05/17 04:24 Aerobic Blood Culture - Preliminary Blood - Venous NO GROWTH AFTER 2 DAYS Anaerobic Blood Culture - Preliminary NO GROWTH AFTER 2 DAYS Med Orders - Current: Current Medications Acetaminophen (Tylenol) 650 mg PO Q4H PRN PRN Reason: Pain Last Admin: 08/07/17 09:51 Dose: 650 mg Enoxaparin Sodium (Lovenox) 40 mg SUBCUT Q24H [facility] Last Admin: 08/06/17 15:25 Dose: 40 mg Ceftriaxone Sodium/Dextrose 1 (gm/ Premix) 50 mls @ 100 mls/hr IV Q24H [facility] Last Admin: 08/07/17 03:14 Dose: 100 mls/hr Ondansetron HCl (Zofran) 4 mg IVPUSH Q4H PRN PRN Reason: Nausea/Vomiting Last Admin: 08/06/17 20:15 Dose: 4 mg Ondansetron HCl (Zofran) 4 mg IVPUSH ONETIME PRN PRN Reason: Nausea/Vomiting Tramadol HCl (Ultram) 50 mg PO Q4H PRN PRN Reason: Pain Last Admin: 08/07/17 07:52 Dose: 50 mg Discontinued Medications Diphenhydramine HCl (Benadryl) 25 mg IVPUSH ONETIME ONE Stop: 08/06/17 17:19 Last Admin: 08/06/17 17:26 Dose: 25 mg Hydromorphone HCl (Dilaudid) 1 mg IVPUSH ONETIME ONE Stop: 08/05/17 03:03 Last Admin: 08/05/17 03:16 Dose: 1 mg Sodium Chloride (Normal Saline) 1,000 mls @ 999 mls/hr IV .Bolus ONE Stop: 08/05/17 04:22 Last Admin: 08/05/17 02:30 Dose: 999 mls/hr Ceftriaxone Sodium/Dextrose 1 (gm/ Premix) 50 mls @ 100 mls/hr IV ONETIME ONE Stop: 08/05/17 04:35 Last Admin: 08/05/17 04:28 Dose: 100 mls/hr Sodium Chloride (Normal Saline) 1,000 mls @ 125 mls/hr IV ASDIRECTED RIZWANA Stop: 08/06/17 00:56 Last Infusion: 08/06/17 00:04 Dose: 125 mls/hr Ketorolac Tromethamine (Toradol) 30 mg IVPUSH ONETIME ONE Stop: 08/05/17 02:22 Last Admin: 08/05/17 02:34 Dose: 30 mg Morphine Sulfate (Morphine) 2 mg IVPUSH Q2H PRN PRN Reason: Pain (severe 7-10) Stop: 08/06/17 15:48 Last Admin: 08/06/17 14:19 Dose: 2 mg Ondansetron HCl (Zofran) 4 mg IVPUSH ONETIME ONE Stop: 08/05/17 02:23 Last Admin: 08/05/17 06:14 Dose: Not Given <Everette Man J - Last Filed: 08/20/17 13:33> - Patient Data Vitals - Most Recent: Last Vital Signs Temp 36.2 C 08/07/17 12:00 Pulse 88 08/07/17 12:00 Resp 16 08/07/17 12:00 BP 126/80 08/07/17 12:00 Pulse Ox 97 08/07/17 12:00 Med Orders - Current: Current Medications Discontinued Medications Acetaminophen (Tylenol) 650 mg PO Q4H PRN PRN Reason: Pain Last Admin: 08/07/17 09:51 Dose: 650 mg Diphenhydramine HCl (Benadryl) 25 mg IVPUSH ONETIME ONE Stop: 08/06/17 17:19 Last Admin: 08/06/17 17:26 Dose: 25 mg Enoxaparin Sodium (Lovenox) 40 mg SUBCUT Q24H [facility] Last Admin: 08/06/17 15:25 Dose: 40 mg Hydromorphone HCl (Dilaudid) 1 mg IVPUSH ONETIME ONE Stop: 08/05/17 03:03 Last Admin: 08/05/17 03:16 Dose: 1 mg Sodium Chloride (Normal Saline) 1,000 mls @ 999 mls/hr IV .Bolus ONE Stop: 08/05/17 04:22 Last Admin: 08/05/17 02:30 Dose: 999 mls/hr Ceftriaxone Sodium/Dextrose 1 (gm/ Premix) 50 mls @ 100 mls/hr IV ONETIME ONE Stop: 08/05/17 04:35 Last Admin: 08/05/17 04:28 Dose: 100 mls/hr Ceftriaxone Sodium/Dextrose 1 (gm/ Premix) 50 mls @ 100 mls/hr IV Q24H [facility] Last Admin: 08/07/17 03:14 Dose: 100 mls/hr Sodium Chloride (Normal Saline) 1,000 mls @ 125 mls/hr IV ASDIRECTED [facility] Stop: 08/06/17 00:56 Last Infusion: 08/06/17 00:04 Dose: 125 mls/hr Ketorolac Tromethamine (Toradol) 30 mg IVPUSH ONETIME ONE Stop: 08/05/17 02:22 Last Admin: 08/05/17 02:34 Dose: 30 mg Morphine Sulfate (Morphine) 2 mg IVPUSH Q2H PRN PRN Reason: Pain (severe 7-10) Stop: 08/06/17 15:48 Last Admin: 08/06/17 14:19 Dose: 2 mg Ondansetron HCl (Zofran) 4 mg IVPUSH ONETIME ONE Stop: 08/05/17 02:23 Last Admin: 08/05/17 06:14 Dose: Not Given Ondansetron HCl (Zofran) 4 mg IVPUSH Q4H PRN PRN Reason: Nausea/Vomiting Last Admin: 08/06/17 20:15 Dose: 4 mg Ondansetron HCl (Zofran) 4 mg IVPUSH ONETIME PRN PRN Reason: Nausea/Vomiting Tramadol HCl (Ultram) 50 mg PO Q4H PRN PRN Reason: Pain Last Admin: 08/07/17 07:52 Dose: 50 mg - Free Text/Narrative Note: I have examined the patient. I have discussed findings and treatment plan with the resident. I agree with the assessment and plan outlined in the following resident's note.
[2017-08-07 13:23] VITALS: BP 126/80
== END 2017-08-07 14:16 | disposition home or self-care (01) | DRG 463 ==
LOC: MW.ED 02:03 → MW.MS 04:11
PROVIDERS: ADMIT Internal Medicine; ATTEND Internal Medicine
DX: N12 Tubulo-interstitial nephritis, not specified as acute or chronic (principal); Z88.8 Allergy status to other drugs, medicaments and biological substances
CPT/HCPCS: 36415; 74176; 74176-26; 80048; 80053; 81001; 81025; 85025; 87040; 87086; 87088; 87186; 96361; 96374; 96375; 99283; 99285-25; A9270-GY; J0696; J1170; J1200; J1650; J1885; J2270; J2405; J7040

== ENCOUNTER 2018-07-07 06:45 | Emergency (ER) | payer BC ==
[2018-07-07] MEDS ORDERED: Ondansetron 4 MG/2 ML SDV IVPUSH ONE (07:20)
[2018-07-07] MEDS ORDERED: Sodium Chloride 0.9% 1,000 ML IV ONE ×2 (07:20→08:40)
[2018-07-07] MEDS ORDERED: Ketorolac 30 MG/ML SDV IVPUSH ONE (07:22)
[2018-07-07] MEDS ORDERED: HYDROmorphone 1 MG/ML Syringe IVPUSH ONE (07:24)
[2018-07-07] MEDS ORDERED: Iopamidol 755 MG/ML 200 ML Multipack Bottle IVPUSH STA (11:22)
[2018-07-07 11:39] LABS: CHLORIDE,CL 105 mmol/L (98-107); SODIUM,NA 140 mmol/L (136-145)
[2018-07-07 12:41] VITALS: BP 147/91
--- NOTE | 2018-07-08 10:29 | CT ---
EXAM DATE: 07/07/18 PATIENT'S AGE: 32 Patient: CAROLA MCDONOUGH Facility: [place], [place] Site . Site : 1985 Study: CT Abdomen/Pelvis-07/07/2018 9:42:34 AM Ordering Physician: Rojas Final Report: INDICATION: Abdominal pain. TECHNIQUE: CT of the abdomen and pelvis performed after IV injection 100 mL of [id number]. COMPARISON: CT 08/05/2017. FINDINGS: Subtle suggestion of density in the dependent gallbladder is new and could be artifactual or related to minimal amount of sludge in debris. Tiny insignificant low-density focus in the right hepatic lobe. Moderate scarring and cortical thinning and multiple locations of the left mid and upper kidney cyst consistent with prior renal insult such as prior renal infection or vesicoureteral reflux. Focal high density in the right lower kidney likely related to early excretion of IV contrast. Minimal stranding along the anterior aspect of the urinary bladder could was present previously and is fairly nonspecific. This could be related to the sequela of previous inflammation. If there is concern for early cystitis, this could be correlated to urinalysis. Remainder negative. IMPRESSION: 1. Minimal stable stranding in the fat anterior to the urinary bladder unchanged from August 2017 and could be chronic and related to previous inflammation. If there is concern for early cystitis this could be correlated to urinalysis. 2. Scarring and cortical thinning in the left mid and upper kidney is stable and consistent with chronic renal insult. 3. Small amount of density in the dependent gallbladder could be artifactual or related to early minimal sludge in debris. Please note that all CT scans at this facility use dose modulation, iterative reconstruction, and/or weight-based dosing when appropriate to reduce radiation dose to as low as reasonably achievable. Dictated by Sigifredo Ordaz MD @ Jul 07 2018 10:16AM (Electronic Signature) Report Signed by Proxy. MTDD
== END 2018-07-07 10:30 | disposition home or self-care (01) ==
LOC: MW.ED 06:45
DX: R10.9 Unspecified abdominal pain (principal); E11.9 Type 2 diabetes mellitus without complications
CPT/HCPCS: 36415; 74177; 80053; 81001; 82150; 83690; 84702; 85025; 86677; 96361; 96374; 96375; 99284; J1170; J1885; J2405; J7040; Q9967

== ENCOUNTER 2018-09-20 08:46 | Inpatient (IN) | payer BC ==
[2018-09-20] MEDS ORDERED: Sodium Chloride 0.9% 2.5 ML Syringe FLUSH PRN (09:09)
[2018-09-20] MEDS ORDERED: Sodium Chloride 0.9% 1,000 ML IV ONE (09:09)
[2018-09-20] MEDS ORDERED: cefTRIAXone 1 GM in Premix Bag 1 BAG IV ONE (09:09)
[2018-09-20] MEDS ORDERED: Sodium Chloride 0.9% 10 ML Syringe FLUSH PRN (09:09)
--- NOTE | 2018-09-20 09:11 | EDM.PDOC ---
ED HPI GENERAL MEDICAL PROBLEM - General Chief Complaint: Flank Pain Stated Complaint: KIDNEY ISSUES Time Seen by Provider: 09/20/18 09:08 - History of Present Illness INITIAL COMMENTS - FREE TEXT/NARRATIVE: HISTORY AND PHYSICAL: History of present illness: Patient is a 32-year-old female presents with a concern of lower back and abdominal pain with discomfort urination frequency and prior episodes of urinary tract infection similar to these there's been no vomiting diarrhea or other concern she denies trauma denies vaginal discharge or irregular bleeding or . Review of systems: As per history of present illness and below otherwise all systems reviewed and negative. Past medical history: As per history of present illness and as reviewed below otherwise noncontributory. Surgical history: As per history of present illness and as reviewed below otherwise noncontributory. Social history: No reported history of drug or alcohol abuse. Family history: As per history of present illness and as reviewed below otherwise noncontributory. Physical exam: HEENT: Atraumatic, normocephalic, pupils reactive, negative for conjunctival pallor or scleral icterus, mucous membranes moist, throat clear, neck supple, nontender, trachea midline. Lungs: Clear to auscultation, breath sounds equal bilaterally, chest nontender. Heart: S1S2, regular, negative for clicks, rubs, or JVD. Abdomen: Soft, nondistended, nonlocalized lower abdominal tenderness to deep palpation. Negative for masses or hepatosplenomegaly. Bilateral costovertebral tenderness. Pelvis: Stable nontender. Genitourinary: Deferred. Rectal: Deferred. Extremities: Atraumatic, negative for cords or calf pain. Neurovascular unremarkable. Neuro: Awake, alert, oriented. Cranial nerves II through XII unremarkable. Cerebellum unremarkable. Motor and sensory unremarkable throughout. Exam nonfocal. Diagnostics: CBC CMP UA hCG blood culture [address] abdomen and pelvis Therapeutics: Saline 1 L bolus Rocephin 1 g IV Impression: #1 pyelonephritis Definitive disposition and diagnosis as appropriate pending reevaluation and review of above. Left Lower Back Pain Score (Numeric/FACES): 9 - Related Data Allergies Allergy/AdvReac Type Severity Reaction Status Date / Time ibuprofen Allergy Nausea and Verified 09/20/18 08:53 Vomiting Home Meds: Home Meds Control 1 dose PO DAILY 09/20/18 [History] Past Medical History - Past Health History Medical/Surgical History: Denies Medical/Surgical History HEENT History: Reports: Impaired Vision Cardiovascular History: Reports: None Respiratory History: Reports: None Gastrointestinal History: Reports: None Genitourinary History: Reports: UTI, Recurrent [employer]CH[employer]ICIAN History: Reports: , Spontaneous Musculoskeletal History: Reports: None Neurological History: Reports: None Psychiatric History: Reports: None Endocrine/Metabolic History: Reports: Obesity/BMI 30+ Hematologic History: Reports: Anemia Immunologic History: Reports: None Oncologic (Cancer) History: Reports: None Dermatologic History: Reports: None - Infectious Disease History Infectious Disease History: Reports: None - Past Surgical History Head Surgeries/Procedures: Reports: None HEENT Surgical History: Reports: Myringotomy w Tube(s), Other (See Below) Cardiovascular Surgical History: Reports: None Respiratory Surgical History: Reports: None GI Surgical History: Reports: None Female Surgical History: Reports: Section Endocrine Surgical History: Reports: None Musculoskeletal Surgical History: Reports: None Social & Family History - Family History Family Medical History: Noncontributory - Tobacco Use Smoking Status *Q: Never Smoker - Caffeine Use Caffeine Use: Reports: Soda - Recreational Drug Use Recreational Drug Use: No ED ROS GENERAL - Review of Systems Review Of Systems: ROS reveals no pertinent complaints other than HPI. ED EXAM, GENERAL - Physical Exam Exam: See Below (See dictation) Course - Vital Signs Last Recorded V/S: Last Vital Signs Temp 37.7 C 09/20/18 20:00 Pulse 111 H 09/20/18 20:00 Resp 16 09/20/18 20:00 BP 125/76 09/20/18 20:00 Pulse Ox 97 09/20/18 20:00 - Orders/Labs/Meds Orders: Active Orders 24 hr Category Date Time Status Patient Status [ADT] Stat ADT 09/20/18 10:37 Active CULTURE BLOOD [BC] Stat Lab 09/20/18 09:10 Received CULTURE BLOOD [BC] Stat Lab 09/20/18 09:50 Received CULTURE URINE [RM] Stat Lab 09/20/18 09:10 Received Sodium Chloride 0.9% [Saline Flush] Med 09/20/18 09:09 Active 10 ml FLUSH ASDIRECTED PRN Sodium Chloride 0.9% [Saline Flush] Med 09/20/18 09:09 Active 2.5 ml FLUSH ASDIRECTED PRN Blood Culture x2 Reflex Set [OM.PC] Stat Oth 09/20/18 09:09 Ordered Saline Lock Insert [OM.PC] Stat Oth 09/20/18 09:08 Ordered Medication Orders Acetaminophen (Tylenol) 650 mg PO Q4H PRN PRN Reason: Pain (Mild 1-3)/fever Last Admin: 09/20/18 19:34 Dose: 650 mg Admin: 09/20/18 16:16 Dose: 650 mg Admin: 09/20/18 11:49 Dose: 650 mg Docusate Sodium (Colace) 100 mg PO BID PRN PRN Reason: Constipation Enoxaparin Sodium (Lovenox) 40 mg SUBCUT Q24H RIZWANA Last Admin: 09/20/18 11:37 Dose: 40 mg Meropenem 1 gm/ Sodium (Chloride) 100 mls @ 200 mls/hr IV Q8H RIZ[place]NA Potassium Chloride/Sodium Chloride (Normal Saline With 20 Meq Kcl) 1,000 mls @ 100 mls/hr IV ASDIRECTED RIZWANA Last Admin: 09/20/18 21:31 Dose: 100 mls/hr Infusion: 09/20/18 21:31 Dose: 100 mls/hr Admin: 09/20/18 11:37 Dose: 100 mls/hr Morphine Sulfate (Morphine) 2 mg IVPUSH Q2H PRN PRN Reason: Pain (severe 7-10) Stop: 09/21/18 10:58 Ondansetron HCl (Zofran Odt) 4 mg PO Q6H PRN PRN Reason: nausea, able to take PO Last Admin: 09/20/18 11:37 Dose: 4 mg Oxycodone HCl (Oxycodone) 5 mg PO Q4H PRN PRN Reason: Pain (moderate 4-6) Last Admin: 09/20/18 21:39 Dose: 5 mg Admin: 09/20/18 11:48 Dose: 5 mg Sodium Chloride (Saline Flush) 10 ml FLUSH ASDIRECTED PRN PRN Reason: Keep Vein Open Last Admin: 09/20/18 09:24 Dose: 10 ml Sodium Chloride (Saline Flush) 2.5 ml FLUSH ASDIRECTED PRN PRN Reason: Keep Vein Open Last Admin: 09/20/18 09:24 Dose: 2.5 ml Temazepam (Restoril) 15 mg PO BEDTIME PRN PRN Reason: Sleep Labs: Laboratory Tests 09/20/18 09/20/18 09/20/18 Range/Units 09:10 09:10 09:10 WBC 12.97 H (4.0-11.0) K/uL RBC 4.55 (4.30-5.90) M/uL Hgb 12.0 (12.0-16.0) g/dL Hct 37.0 (36.0-46.0) % MCV 81.3 (80.0-98.0) fL MCH 26.4 L (27.0-32.0) pg MCHC 32.4 (31.0-37.0) g/dL RDW Std Deviation 44.5 (28.0-62.0) fl RDW Coeff of Jim 15 (11.0-15.0) % Plt Count 303 (150-400) K/uL MPV 9.50 (7.40-12.00) fL Add Manual Diff YES Neutrophils % (Manual) 74 (48.0-80.0) % Lymphocytes % (Manual) 13 L (16.0-40.0) % Monocytes % (Manual) 13 (0.0-15.0) % Nucleated RBC % 0.0 /100WBC Absolute Seg Neuts 9.6 H (1.4-5.7) Lymphocytes # (Manual) 1.7 (0.6-2.4) Monocytes # (Manual) 1.7 H (0.0-0.8) Nucleated RBCs # 0 K/uL Lactate (0.20-2.00) mmol/L Sodium (136-145) mmol/L Potassium (3.5-5.1) mmol/L Chloride (98-107) mmol/L Carbon Dioxide (21.0-32.0) mmol/L BUN (7.0-18.0) mg/dL Creatinine (0.6-1.0) mg/dL Est Cr Clr Drug Dosing mL/min Estimated GFR (MDRD) ml/min Glucose (74-106) mg/dL Calcium (8.5-10.1) mg/dL Total Bilirubin (0.2-1.0) mg/dL AST (15-37) IU/L ALT (14-63) IU/L Alkaline Phosphatase (46-116) U/L Total Protein (6.4-8.2) g/dL Albumin (3.4-5.0) g/dL Globulin (2.6-4.0) g/dL Albumin/Globulin Ratio (0.9-1.6) Urine Color YELLOW Urine Appearance CLEAR Urine pH 6.0 (5.0-8.0) Ur Specific [place] 1.025 (1.001-1.035) Urine Protein 100 H (NEGATIVE) mg/dL Urine Glucose (UA) NEGATIVE (NEGATIVE) mg/dL Urine Ketones >=80 (NEGATIVE) mg/dL Urine Occult Blood SMALL H (NEGATIVE) Urine Nitrite NEGATIVE (NEGATIVE) Urine Bilirubin MODERATE H (NEGATIVE) Urine Urobilinogen 4.0 H (<2.0) EU/dL Ur Leukocyte Esterase TRACE H (NEGATIVE) Urine RBC 2-4 (0-2/HPF) Urine WBC 80-85 (0-5/HPF) Ur Epithelial Cells FEW (NONE-FEW) Urine Bacteria 1+ H (NEGATIVE) Urine HCG, Qual NEGATIVE (NEGATIVE) 09/20/18 09/20/18 Range/Units 09:10 09:50 WBC (4.0-11.0) K/uL RBC (4.30-5.90) M/uL Hgb (12.0-16.0) g/dL Hct (36.0-46.0) % MCV (80.0-98.0) fL MCH (27.0-32.0) pg MCHC (31.0-37.0) g/dL RDW Std Deviation (28.0-62.0) fl RDW Coeff of Jim (11.0-15.0) % Plt Count (150-400) K/uL MPV (7.40-12.00) fL Add Manual Diff Neutrophils % (Manual) (48.0-80.0) % Lymphocytes % (Manual) (16.0-40.0) % Monocytes % (Manual) (0.0-15.0) % Nucleated RBC % /100WBC Absolute Seg Neuts (1.4-5.7) Lymphocytes # (Manual) (0.6-2.4) Monocytes # (Manual) (0.0-0.8) Nucleated RBCs # K/uL Lactate 0.9 (0.20-2.00) mmol/L Sodium 136 (136-145) mmol/L Potassium 2.9 L (3.5-5.1) mmol/L Chloride 101 (98-107) mmol/L Carbon Dioxide 17.0 L (21.0-32.0) mmol/L BUN 13 (7.0-18.0) mg/dL Creatinine 0.9 (0.6-1.0) mg/dL Est Cr Clr Drug Dosing 78.93 mL/min Estimated GFR (MDRD) > 60.0 ml/min Glucose 99 (74-106) mg/dL Calcium 8.4 L (8.5-10.1) mg/dL Total Bilirubin 0.8 (0.2-1.0) mg/dL AST 10 L (15-37) IU/L ALT 11 L (14-63) IU/L Alkaline Phosphatase 68 (46-116) U/L Total Protein 7.6 (6.4-8.2) g/dL Albumin 2.9 L (3.4-5.0) g/dL Globulin 4.7 H (2.6-4.0) g/dL Albumin/Globulin Ratio 0.6 L (0.9-1.6) Urine Color Urine Appearance Urine pH (5.0-8.0) Ur Specific [place] (1.001-1.035) Urine Protein (NEGATIVE) mg/dL Urine Glucose (UA) (NEGATIVE) mg/dL Urine Ketones (NEGATIVE) mg/dL Urine Occult Blood (NEGATIVE) Urine Nitrite (NEGATIVE) Urine Bilirubin (NEGATIVE) Urine Urobilinogen (<2.0) EU/dL Ur Leukocyte Esterase (NEGATIVE) Urine RBC (0-2/HPF) Urine WBC (0-5/HPF) Ur Epithelial Cells (NONE-FEW) Urine Bacteria (NEGATIVE) Urine HCG, Qual (NEGATIVE) Meds: Medications Generic Name Dose Route Start Last Admin Trade Name Freq PRN Reason Stop Dose Admin Acetaminophen 650 mg 09/20/18 10:57 09/20/18 19:34 Tylenol PO 650 mg Q4H PRN Administration Pain (Mild 1-3)/fever Docusate Sodium 100 mg 09/20/18 10:57 Colace PO BID PRN Constipation Enoxaparin Sodium 40 mg 09/20/18 11:00 09/20/18 11:37 Lovenox SUBCUT 40 mg Q24H RIZWANA Administration Meropenem 1 gm/ Sodium 100 mls @ 200 mls/hr 05/18/19 09:00 Chloride IV Q8H RIZWANA Potassium Chloride/Sodium Chloride 1,000 mls @ 100 mls/hr 09/20/18 11:00 21:31 Normal Saline With 20 Meq Kcl IV 100 mls/hr ASDIRECTED RIZWANA Administration Morphine Sulfate 2 mg 09/20/18 10:57 Morphine IVPUSH 09/21/18 10:58 Q2H PRN Pain (severe 7-10) Ondansetron HCl 4 mg 09/20/18 10:57 09/20/18 11:37 Zofran Odt PO 4 mg Q6H PRN Administration nausea, able to take PO Oxycodone HCl 5 mg 09/20/18 10:57 09/20/18 21:39 Oxycodone PO 5 mg Q4H PRN Administration Pain (moderate 4-6) Sodium Chloride 10 ml 09/20/18 09:09 09/20/18 09:24 Saline Flush FLUSH 10 ml ASDIRECTED PRN Administration Keep Vein Open Sodium Chloride 2.5 ml 09/20/18 09:09 09/20/18 09:24 Saline Flush FLUSH 2.5 ml ASDIRECTED PRN Administration Keep Vein Open Temazepam 15 mg 09/20/18 10:57 Restoril PO BEDTIME PRN Sleep Discontinued Medications Generic Name Dose Route Start Last Admin Trade Name Freq PRN Reason Stop Dose Admin Ceftriaxone Sodium/Dextrose 1 50 mls @ 100 mls/hr 09/20/18 09:09 09/20/18 10: 18 gm/ Premix IV 09/20/18 09:38 100 mls/hr ONETIME ONE Administration Sodium Chloride 1,000 mls @ 999 mls/hr 09/20/18 09:09 09/20/18 09:23 Normal Saline IV 09/20/18 10:09 999 mls/hr STAT ONE Administration Departure - Departure Time of Disposition: 23:58 Disposition: Admitted As Inpatient 68 Condition: Good Clinical Impression: Pyelonephritis - Discharge Information - My Orders Last 24 Hours: My Active Orders 09/20/18 09:08 Saline Lock Insert [OM.PC] Stat 09/20/18 09:09 Sodium Chloride 0.9% [Saline Flush] 10 ml FLUSH ASDIRECTED PRN Sodium Chloride 0.9% [Saline Flush] 2.5 ml FLUSH ASDIRECTED PRN Blood Culture x2 Reflex Set [OM.PC] Stat 09/20/18 09:10 CULTURE BLOOD [BC] Stat CULTURE URINE [RM] Stat 09/20/18 09:50 CULTURE BLOOD [BC] Stat 09/20/18 10:37 Patient Status [ADT] Stat - Assessment/Plan Last 24 Hours: My Active Orders 09/20/18 09:08 Saline Lock Insert [OM.PC] Stat 09/20/18 09:09 Sodium Chloride 0.9% [Saline Flush] 10 ml FLUSH ASDIRECTED PRN Sodium Chloride 0.9% [Saline Flush] 2.5 ml FLUSH ASDIRECTED PRN Blood Culture x2 Reflex Set [OM.PC] Stat 09/20/18 09:10 CULTURE BLOOD [BC] Stat CULTURE URINE [RM] Stat 09/20/18 09:50 CULTURE BLOOD [BC] Stat 09/20/18 10:37 Patient Status [ADT] Stat
[2018-09-20 10:00] LABS: CHLORIDE,CL 101 mmol/L (98-107); SODIUM,NA 136 mmol/L (136-145)
--- NOTE | 2018-09-20 10:33 | CT ---
CT of the abdomen and pelvis without contrast. HISTORY: Pain TECHNIQUE: Axial CT images were obtained of the abdomen and pelvis without contrast. Coronal and sagittal reconstructions obtained. FINDINGS: The lung bases are clear, no pleural effusion. The liver, spleen, adrenal glands, and pancreas appear unremarkable for noncontrast examination. Cholelithiasis without evidence of cholecystitis. There is no bulky retroperitoneal lymphadenopathy. No abdominal ascites. There are no calcifications noted within the kidneys or along the courses of the ureters bilaterally. There is mild perirenal stranding, without definite hydronephrosis. The large and small bowel are normal in caliber without evidence of obstruction. The appendix appears normal. There is no bulky pelvic lymphadenopathy. No free fluid. No free air. The urinary bladder appears normal. The visualized osseous structures appear normal. IMPRESSION: 1. Left perirenal stranding, this may suggest an underlying infectious process such as pyelonephritis or a recently passed stone. 2. Cholelithiasis without evidence cholecystitis.
[2018-09-20] MEDS ORDERED: Morphine 10 MG/ML Syringe IVPUSH PRN (10:57)
[2018-09-20] MEDS ORDERED: Docusate Sodium 100 MG Cap PO PRN (10:57)
--- NOTE | 2018-09-20 11:02 | PCM.HP ---
H&P History of Present Illness - General Date of Service: 09/20/18 Admit Problem/Dx: Admission Diagnosis/Problem Admission Diagnosis/Problem Pyelonephritis Source of Information: Patient History Limitations: Reports: No Limitations - History of Present Illness Initial Comments - Free Text/Narative: The patient is a 32-year-old lady who had presented out of concern with left- sided flank pain, lower back pain and abdominal pain. The patient had been trying to drink large amounts of water and she has had dysuria, frequency and urgency. The patient also says that she had her symptoms that started approximately 1 week ago. Since that time the patient was also had fever and chills. She's had some nausea and vomiting associated as well. The patient had presented to the emergency department because she was concerned about the severity of her symptoms. The patient says that she had a pyelonephritis last year. She did have a mild urinary tract infection 2 months ago. The patient says that the pain is in her back and radiates down her side. She is in no specific aggravating or relieving factors for this. Generally the patient feels uncomfortable. Patient also says that she has had some diarrhea associated with this. She has been in her usual state of health up until the present. Onset of Symptoms: Reports: Gradual Duration of Symptoms: Reports: Day(s):, Getting Worse Location: Reports: Back Quality: Reports: Ache, Stabbing Severity: Moderate Improves with: Reports: Medication Worsens with: Reports: Movement Context: Denies: Sick Contact Associated Symptoms: Reports: Diaphoresis, Fever/Chills, Nausea/Vomiting Left Lower Back Pain Score (Numeric/FACES): 9 - Related Data Allergies/Adverse Reactions: Allergies Allergy/AdvReac Type Severity Reaction Status Date / Time ibuprofen Allergy Nausea and Verified 09/20/18 08:53 Vomiting Home Medications: Home Meds Control 1 dose PO DAILY 09/20/18 [History] Past Medical History - Past Health History Medical/Surgical History: Denies Medical/Surgical History HEENT History: Reports: Impaired Vision Cardiovascular History: Reports: None Respiratory History: Reports: None Gastrointestinal History: Reports: None Genitourinary History: Reports: UTI, Recurrent DIRECTOR COMPENSATION History: Reports: , Spontaneous Musculoskeletal History: Reports: None Neurological History: Reports: None Psychiatric History: Reports: None Endocrine/Metabolic History: Reports: Obesity/BMI 30+ Hematologic History: Reports: Anemia Immunologic History: Reports: None Oncologic (Cancer) History: Reports: None Dermatologic History: Reports: None - Infectious Disease History Infectious Disease History: Reports: None - Past Surgical History Head Surgeries/Procedures: Reports: None HEENT Surgical History: Reports: Myringotomy w Tube(s), Other (See Below) Cardiovascular Surgical History: Reports: None Respiratory Surgical History: Reports: None GI Surgical History: Reports: None Female Surgical History: Reports: Section Endocrine Surgical History: Reports: None Musculoskeletal Surgical History: Reports: None Social & Family History - Family History Family Medical History: Noncontributory - Tobacco Use Smoking Status *Q: Never Smoker - Caffeine Use Caffeine Use: Reports: Soda - Recreational Drug Use Recreational Drug Use: No - Living Situation & Occupation Living situation: Reports: , with Spouse Occupation: Employed H&P Review of Systems - Review of Systems: Review Of Systems: See Below General: Reports: Fever, Chills, Weakness, Decreased Appetite HEENT: Reports: No Symptoms Pulmonary: Reports: No Symptoms Cardiovascular: Reports: No Symptoms Gastrointestinal: Reports: Abdominal Pain Genitourinary: Reports: Dysuria, Frequency, Burning, Flank Pain Musculoskeletal: Reports: Back Pain Skin: Reports: No Symptoms Psychiatric: Reports: No Symptoms Neurological: Reports: No Symptoms Hematologic/Lymphatic: Reports: No Symptoms Immunologic: Reports: No Symptoms Exam - Exam Exam: See Below - Vital Signs Vital Signs: Last Vital Signs Temp 37.3 C 09/20/18 10:58 Pulse 96 09/20/18 10:58 Resp 18 09/20/18 10:58 BP 126/83 09/20/18 10:58 Pulse Ox 97 09/20/18 10:58 Weight: 113.398 kg - Exam Quality Assessment: No: Supplemental Oxygen General: Alert, Oriented, Cooperative, Mild Distress HEENT: Conjunctiva Clear, EACs Clear, EOMI, Mucosa Moist & Bunch, Nares Patent, Pupils Equal, PERRLA Neck: Supple, Trachea Midline Lungs: Clear to Auscultation, Normal Respiratory Effort Cardiovascular: Regular Rate, Regular Rhythm GI/Abdominal Exam: Normal Bowel Sounds, Tender (Tender right renal ballottement) . No: Guarding, Rigid Back Exam: CVA Tenderness (R). No: CVA Tenderness (L) Extremities: Normal Inspection, No Pedal Edema Skin: Warm, Dry, Intact Neuro Extensive - Mental Status: Alert, Oriented x3 Neuro Extensive - Motor, Sensory, Reflexes: CN II-XII Intact Psychiatric: Alert, Normal Affect, Normal Mood - Patient Data Lab Results Last 24 hrs: Laboratory Results - last 24 hr 09/20/18 09/20/18 09/20/18 Range/Units 09:10 09:10 09:10 WBC 12.97 H (4.0-11.0) K/uL RBC 4.55 (4.30-5.90) M/uL Hgb 12.0 (12.0-16.0) g/dL Hct 37.0 (36.0-46.0) % MCV 81.3 (80.0-98.0) fL MCH 26.4 L (27.0-32.0) pg MCHC 32.4 (31.0-37.0) g/dL RDW Std Deviation 44.5 (28.0-62.0) fl RDW Coeff of Jim 15 (11.0-15.0) % Plt Count 303 (150-400) K/uL MPV 9.50 (7.40-12.00) fL Add Manual Diff YES Neutrophils % (Manual) 74 (48.0-80.0) % Lymphocytes % (Manual) 13 L (16.0-40.0) % Monocytes % (Manual) 13 (0.0-15.0) % Nucleated RBC % 0.0 /100WBC Absolute Seg Neuts 9.6 H (1.4-5.7) Lymphocytes # (Manual) 1.7 (0.6-2.4) Monocytes # (Manual) 1.7 H (0.0-0.8) Nucleated RBCs # 0 K/uL Lactate (0.20-2.00) mmol/L Sodium (136-145) mmol/L Potassium (3.5-5.1) mmol/L Chloride (98-107) mmol/L Carbon Dioxide (21.0-32.0) mmol/L BUN (7.0-18.0) mg/dL Creatinine (0.6-1.0) mg/dL Est Cr Clr Drug Dosing mL/min Estimated GFR (MDRD) ml/min Glucose (74-106) mg/dL Calcium (8.5-10.1) mg/dL Total Bilirubin (0.2-1.0) mg/dL AST (15-37) IU/L ALT (14-63) IU/L Alkaline Phosphatase (46-116) U/L Total Protein (6.4-8.2) g/dL Albumin (3.4-5.0) g/dL Globulin (2.6-4.0) g/dL Albumin/Globulin Ratio (0.9-1.6) Urine Color YELLOW Urine Appearance CLEAR Urine pH 6.0 (5.0-8.0) Ur Specific [place] 1.025 (1.001-1.035) Urine Protein 100 H (NEGATIVE) mg/dL Urine Glucose (UA) NEGATIVE (NEGATIVE) mg/dL Urine Ketones >=80 (NEGATIVE) mg/dL Urine Occult Blood SMALL H (NEGATIVE) Urine Nitrite NEGATIVE (NEGATIVE) Urine Bilirubin MODERATE H (NEGATIVE) Urine Urobilinogen 4.0 H (<2.0) EU/dL Ur Leukocyte Esterase TRACE H (NEGATIVE) Urine RBC 2-4 (0-2/HPF) Urine WBC 80-85 (0-5/HPF) Ur Epithelial Cells FEW (NONE-FEW) Urine Bacteria 1+ H (NEGATIVE) Urine HCG, Qual NEGATIVE (NEGATIVE) 09/20/18 09/20/18 Range/Units 09:10 09:50 WBC (4.0-11.0) K/uL RBC (4.30-5.90) M/uL Hgb (12.0-16.0) g/dL Hct (36.0-46.0) % MCV (80.0-98.0) fL MCH (27.0-32.0) pg MCHC (31.0-37.0) g/dL RDW Std Deviation (28.0-62.0) fl RDW Coeff of Jim (11.0-15.0) % Plt Count (150-400) K/uL MPV (7.40-12.00) fL Add Manual Diff Neutrophils % (Manual) (48.0-80.0) % Lymphocytes % (Manual) (16.0-40.0) % Monocytes % (Manual) (0.0-15.0) % Nucleated RBC % /100WBC Absolute Seg Neuts (1.4-5.7) Lymphocytes # (Manual) (0.6-2.4) Monocytes # (Manual) (0.0-0.8) Nucleated RBCs # K/uL Lactate 0.9 (0.20-2.00) mmol/L Sodium 136 (136-145) mmol/L Potassium 2.9 L (3.5-5.1) mmol/L Chloride 101 (98-107) mmol/L Carbon Dioxide 17.0 L (21.0-32.0) mmol/L BUN 13 (7.0-18.0) mg/dL Creatinine 0.9 (0.6-1.0) mg/dL Est Cr Clr Drug Dosing 78.93 mL/min Estimated GFR (MDRD) > 60.0 ml/min Glucose 99 (74-106) mg/dL Calcium 8.4 L (8.5-10.1) mg/dL Total Bilirubin 0.8 (0.2-1.0) mg/dL AST 10 L (15-37) IU/L ALT 11 L (14-63) IU/L Alkaline Phosphatase 68 (46-116) U/L Total Protein 7.6 (6.4-8.2) g/dL Albumin 2.9 L (3.4-5.0) g/dL Globulin 4.7 H (2.6-4.0) g/dL Albumin/Globulin Ratio 0.6 L (0.9-1.6) Urine Color Urine Appearance Urine pH (5.0-8.0) Ur Specific [place] (1.001-1.035) Urine Protein (NEGATIVE) mg/dL Urine Glucose (UA) (NEGATIVE) mg/dL Urine Ketones (NEGATIVE) mg/dL Urine Occult Blood (NEGATIVE) Urine Nitrite (NEGATIVE) Urine Bilirubin (NEGATIVE) Urine Urobilinogen (<2.0) EU/dL Ur Leukocyte Esterase (NEGATIVE) Urine RBC (0-2/HPF) Urine WBC (0-5/HPF) Ur Epithelial Cells (NONE-FEW) Urine Bacteria (NEGATIVE) Urine HCG, Qual (NEGATIVE) Result Diagrams: 09/20/18 09:10 09/20/18 09:10 - Problem List (1) SIRS due to infectious process without acute organ dysfunction SNOMED Code(s): 52324040440638, [id number] ICD Code: [id number] - Status: Acute Priority: High Current Visit: Yes (2) Pyelonephritis SNOMED Code(s): 16087746 ICD Code: N12 - TUBULO-INTERSTITIAL NEPHRITIS, NOT SPCF ACUTE OR CHRONIC Status: Acute Priority: High Current Visit: Yes (3) Hypokalemia due to loss of potassium SNOMED Code(s): 93996394 ICD Code: E87.6 - HYPOKALEMIA Status: Acute Priority: High Current Visit: Yes (4) Morbid obesity with BMI of 40.0-44.9, adult SNOMED Code(s): 004298772, 23118259783618 ICD Code: E66.01 - MORBID (SEVERE) OBESITY DUE TO EXCESS CALORIES; Z68.41 - BODY MASS INDEX (BMI) 40.0-44.9, ADULT Status: Chronic Priority: Medium Current Visit: Yes Problem List Initiated/Reviewed/Updated: Yes Orders Last 24hrs: Active Orders 24 hr Category Date Time Status Patient Status [ADT] Stat ADT 09/20/18 10:37 Active Oxygen Therapy [RC] PRN Care 09/20/18 10:57 Active Up ad Gail [RC] ASDIRECTED Care 09/20/18 10:57 Active VTE/DVT Education [RC] PER UNIT ROUTINE Care 09/20/18 10:57 Active Vital Signs [RC] Q4H Care 09/20/18 10:57 Active Regular Diet [DIET] Diet 09/20/18 Lunch Active BASIC METABOLIC PANEL,BMP [CHEM] AM Lab 09/21/18 05:11 Ordered CBC WITH AUTO DIFF [HEME] AM Lab 09/21/18 05:11 Ordered CULTURE BLOOD [BC] Stat Lab 09/20/18 09:10 Received CULTURE BLOOD [BC] Stat Lab 09/20/18 09:50 Received CULTURE URINE [RM] Stat Lab 09/20/18 09:10 Received Acetaminophen [Tylenol] Med 09/20/18 10:57 Active 650 mg PO Q4H PRN Docusate Sodium [Colace] Med 09/20/18 10:57 Ordered 100 mg PO BID PRN Enoxaparin [Lovenox] Med 09/20/18 11:00 Ordered 40 mg SUBCUT Q24H Meropenem [Merrem] 1 gm Med 09/21/18 09:00 Ordered Sodium Chloride 0.9% [Normal Saline] 100 ml IV Q8H Morphine Med 09/20/18 10:57 Ordered 2 mg IVPUSH Q2H PRN Ondansetron [Zofran ODT] Med 09/20/18 10:57 Ordered 4 mg PO Q6H PRN Sodium Chloride 0.9% [Saline Flush] Med 09/20/18 09:09 Active 10 ml FLUSH ASDIRECTED PRN Sodium Chloride 0.9% [Saline Flush] Med 09/20/18 09:09 Active 2.5 ml FLUSH ASDIRECTED PRN Sodium Chloride 0.9% with KCl 20 mEq @ 100 mL/Hr (1000 Med 09/20/18 11:00 Ordered mL) NS + KCl 20mEq/L [Normal Saline with 20 mEq KCl] 1,000 ml IV ASDIRECTED Temazepam [Restoril] Med 09/20/18 10:57 Ordered 15 mg PO BEDTIME PRN oxyCODONE Med 09/20/18 10:57 Ordered 5 mg PO Q4H PRN Blood Culture x2 Reflex Set [OM.PC] Stat Oth 09/20/18 09:09 Ordered Saline Lock Insert [OM.PC] Stat Ot 09/20/18 09:08 Ordered Resuscitation Status Routine Resus Stat 09/20/18 10:57 Ordered Medication Orders Acetaminophen (Tylenol) 650 mg PO Q4H PRN PRN Reason: Pain (Mild 1-3)/fever Docusate Sodium (Colace) 100 mg PO BID PRN PRN Reason: Constipation Sodium Chloride (Saline Flush) 10 ml FLUSH ASDIRECTED PRN PRN Reason: Keep Vein Open Last Admin: 09/20/18 09:24 Dose: 10 ml Sodium Chloride (Saline Flush) 2.5 ml FLUSH ASDIRECTED PRN PRN Reason: Keep Vein Open Last Admin: 09/20/18 09:24 Dose: 2.5 ml Assessment/Plan Comment:: The patient is a 32-year-old lady who has been admitted secondary to pyelonephritis. Blood cultures and urine cultures have been taken and are currently pending. The patient had been given a dose of ceftriaxone in the emergency department. I've ordered meropenem 1 mg every 8 hours starting tomorrow.The patient will also have her pain controlled with the use of morphine and oxycodone as necessary. She'll also be kept on IV fluids at 125 mL per hour. The patient is hypokalemic and I've ordered potassium replacement of 20 mEq. I've ordered repeat laboratory studies for the morning. The patient is also to continue with her regular diet as tolerated. She is going to be anticoagulated with the use of Lovenox 40 mg subcutaneous on a daily basis. The patient should be appropriate for discharge in 1-2 days.
[2018-09-20] MEDS: NS + KCl 20mEq/L 1,000 ML IV SCH ×2 (11:37→21:31)
[2018-09-20] MEDS: Ondansetron 4 MG Tab.DIS PO PRN (11:37)
[2018-09-20] MEDS: Enoxaparin 40 MG/0.4 ML Syringe SUBCUT SCH (11:37)
[2018-09-20] MEDS: oxyCODONE 5 MG Tab PO PRN ×2 (11:48→21:39)
[2018-09-20] MEDS: Acetaminophen 325 MG Tab PO PRN ×3 (11:49→19:34)
[2018-09-21] MEDS: Acetaminophen 325 MG Tab PO PRN ×3 (04:20→21:27)
--- NOTE | 2018-09-21 05:53 | PCM.PN ---
- General Info Date of Service: 09/21/18 Admission Dx/Problem (Free Text): Admission Diagnosis/Problem Admission Diagnosis/Problem Pyelonephritis, systemic inflammatory response syndrome, flank and back pain Subjective Update: The patient is a 32-year-old lady who was admitted yesterday with pyelonephritis , SIRS and left-sided flank pain. Patient today says that she has had fever and chills. Her appetite is poor. The patient has denied any nausea or vomiting. She says that her pain is controlled but about the same. Functional Status: Reports: Pain Controlled - Review of Systems General: Reports: Fever, Chills HEENT: Reports: No Symptoms Pulmonary: Reports: No Symptoms Cardiovascular: Reports: No Symptoms Gastrointestinal: Reports: Abdominal Pain Genitourinary: Reports: Dysuria Musculoskeletal: Reports: Back Pain Skin: Reports: No Symptoms Neurological: Reports: No Symptoms Psychiatric: Reports: No Symptoms - Patient Data Vitals - Most Recent: Last Vital Signs Temp 39.3 C H 09/21/18 04:00 Pulse 114 H 09/21/18 04:00 Resp 18 09/21/18 04:00 BP 108/56 L 09/21/18 04:00 Pulse Ox 95 09/21/18 04:00 Weight - Most Recent: 113.398 kg I&O - Last 24 Hours: Intake & Output 09/20/18 09/20/18 09/21/18 14:59 22:59 06:59 Intake Total 1450 1250 Output Total 200 800 Balance 1250 450 Lab Results Last 24 Hours: Laboratory Results - last 24 hr 09/20/18 09/20/18 09/20/18 Range/Units 09:10 09:10 09:10 WBC 12.97 H (4.0-11.0) K/uL RBC 4.55 (4.30-5.90) M/uL Hgb 12.0 (12.0-16.0) g/dL Hct 37.0 (36.0-46.0) % MCV 81.3 (80.0-98.0) fL MCH 26.4 L (27.0-32.0) pg MCHC 32.4 (31.0-37.0) g/dL RDW Std Deviation 44.5 (28.0-62.0) fl RDW Coeff of Jim 15 (11.0-15.0) % Plt Count 303 (150-400) K/uL MPV 9.50 (7.40-12.00) fL Add Manual Diff YES Neutrophils % (Manual) 74 (48.0-80.0) % Lymphocytes % (Manual) 13 L (16.0-40.0) % Monocytes % (Manual) 13 (0.0-15.0) % Nucleated RBC % 0.0 /100WBC Absolute Seg Neuts 9.6 H (1.4-5.7) Lymphocytes # (Manual) 1.7 (0.6-2.4) Monocytes # (Manual) 1.7 H (0.0-0.8) Nucleated RBCs # 0 K/uL Lactate (0.20-2.00) mmol/L Sodium (136-145) mmol/L Potassium (3.5-5.1) mmol/L Chloride (98-107) mmol/L Carbon Dioxide (21.0-32.0) mmol/L BUN (7.0-18.0) mg/dL Creatinine (0.6-1.0) mg/dL Est Cr Clr Drug Dosing mL/min Estimated GFR (MDRD) ml/min Glucose (74-106) mg/dL Calcium (8.5-10.1) mg/dL Total Bilirubin (0.2-1.0) mg/dL AST (15-37) IU/L ALT (14-63) IU/L Alkaline Phosphatase (46-116) U/L Total Protein (6.4-8.2) g/dL Albumin (3.4-5.0) g/dL Globulin (2.6-4.0) g/dL Albumin/Globulin Ratio (0.9-1.6) Urine Color YELLOW Urine Appearance CLEAR Urine pH 6.0 (5.0-8.0) Ur Specific [place] 1.025 (1.001-1.035) Urine Protein 100 H (NEGATIVE) mg/dL Urine Glucose (UA) NEGATIVE (NEGATIVE) mg/dL Urine Ketones >=80 (NEGATIVE) mg/dL Urine Occult Blood SMALL H (NEGATIVE) Urine Nitrite NEGATIVE (NEGATIVE) Urine Bilirubin MODERATE H (NEGATIVE) Urine Urobilinogen 4.0 H (<2.0) EU/dL Ur Leukocyte Esterase TRACE H (NEGATIVE) Urine RBC 2-4 (0-2/HPF) Urine WBC 80-85 (0-5/HPF) Ur Epithelial Cells FEW (NONE-FEW) Urine Bacteria 1+ H (NEGATIVE) Urine HCG, Qual NEGATIVE (NEGATIVE) 09/20/18 09/20/18 Range/Units 09:10 09:50 WBC (4.0-11.0) K/uL RBC (4.30-5.90) M/uL Hgb (12.0-16.0) g/dL Hct (36.0-46.0) % MCV (80.0-98.0) fL MCH (27.0-32.0) pg MCHC (31.0-37.0) g/dL RDW Std Deviation (28.0-62.0) fl RDW Coeff of Jim (11.0-15.0) % Plt Count (150-400) K/uL MPV (7.40-12.00) fL Add Manual Diff Neutrophils % (Manual) (48.0-80.0) % Lymphocytes % (Manual) (16.0-40.0) % Monocytes % (Manual) (0.0-15.0) % Nucleated RBC % /100WBC Absolute Seg Neuts (1.4-5.7) Lymphocytes # (Manual) (0.6-2.4) Monocytes # (Manual) (0.0-0.8) Nucleated RBCs # K/uL Lactate 0.9 (0.20-2.00) mmol/L Sodium 136 (136-145) mmol/L Potassium 2.9 L (3.5-5.1) mmol/L Chloride 101 (98-107) mmol/L Carbon Dioxide 17.0 L (21.0-32.0) mmol/L BUN 13 (7.0-18.0) mg/dL Creatinine 0.9 (0.6-1.0) mg/dL Est Cr Clr Drug Dosing 78.93 mL/min Estimated GFR (MDRD) > 60.0 ml/min Glucose 99 (74-106) mg/dL Calcium 8.4 L (8.5-10.1) mg/dL Total Bilirubin 0.8 (0.2-1.0) mg/dL AST 10 L (15-37) IU/L ALT 11 L (14-63) IU/L Alkaline Phosphatase 68 (46-116) U/L Total Protein 7.6 (6.4-8.2) g/dL Albumin 2.9 L (3.4-5.0) g/dL Globulin 4.7 H (2.6-4.0) g/dL Albumin/Globulin Ratio 0.6 L (0.9-1.6) Urine Color Urine Appearance Urine pH (5.0-8.0) Ur Specific [place] (1.001-1.035) Urine Protein (NEGATIVE) mg/dL Urine Glucose (UA) (NEGATIVE) mg/dL Urine Ketones (NEGATIVE) mg/dL Urine Occult Blood (NEGATIVE) Urine Nitrite (NEGATIVE) Urine Bilirubin (NEGATIVE) Urine Urobilinogen (<2.0) EU/dL Ur Leukocyte Esterase (NEGATIVE) Urine RBC (0-2/HPF) Urine WBC (0-5/HPF) Ur Epithelial Cells (NONE-FEW) Urine Bacteria (NEGATIVE) Urine HCG, Qual (NEGATIVE) Med Orders - Current: Current Medications Acetaminophen (Tylenol) 650 mg PO Q4H PRN PRN Reason: Pain (Mild 1-3)/fever Last Admin: 09/21/18 04:20 Dose: 650 mg Docusate Sodium (Colace) 100 mg PO BID PRN PRN Reason: Constipation Enoxaparin Sodium (Lovenox) 40 mg SUBCUT Q24H [facility] Last Admin: 09/20/18 11:37 Dose: 40 mg Meropenem 1 gm/ Sodium (Chloride) 100 mls @ 200 mls/hr IV Q8H [facility] Potassium Chloride/Sodium Chloride (Normal Saline With 20 Meq Kcl) 1,000 mls @ 100 mls/hr IV ASDIRECTED [facility] Last Admin: 09/20/18 21:31 Dose: 100 mls/hr Morphine Sulfate (Morphine) 2 mg IVPUSH Q2H PRN PRN Reason: Pain (severe 7-10) Stop: 09/21/18 10:58 Ondansetron HCl (Zofran Odt) 4 mg PO Q6H PRN PRN Reason: nausea, able to take PO Last Admin: 09/20/18 11:37 Dose: 4 mg Oxycodone HCl (Oxycodone) 5 mg PO Q4H PRN PRN Reason: Pain (moderate 4-6) Last Admin: 09/20/18 21:39 Dose: 5 mg Sodium Chloride (Saline Flush) 10 ml FLUSH ASDIRECTED PRN PRN Reason: Keep Vein Open Last Admin: 09/20/18 09:24 Dose: 10 ml Sodium Chloride (Saline Flush) 2.5 ml FLUSH ASDIRECTED PRN PRN Reason: Keep Vein Open Last Admin: 09/20/18 09:24 Dose: 2.5 ml Temazepam (Restoril) 15 mg PO BEDTIME PRN PRN Reason: Sleep Discontinued Medications Ceftriaxone Sodium/Dextrose 1 (gm/ Premix) 50 mls @ 100 mls/hr IV ONETIME ONE Stop: 09/20/18 09:38 Last Admin: 09/20/18 10:18 Dose: 100 mls/hr Sodium Chloride (Normal Saline) 1,000 mls @ 999 mls/hr IV STAT ONE Stop: 09/20/18 10:09 Last Admin: 09/20/18 09:23 Dose: 999 mls/hr - Exam Quality Assessment: No: Supplemental Oxygen General: Alert, Oriented, Cooperative, No Acute Distress HEENT: Pupils Equal, Pupils Reactive, EOMI Neck: Supple, Trachea Midline Lungs: Clear to Auscultation, Normal Respiratory Effort Cardiovascular: Regular Rate, Regular Rhythm, No Murmurs GI/Abdominal Exam: Normal Bowel Sounds, Soft, Non-Tender, No Distention Back Exam: Normal Inspection, Full Range of Motion. No: CVA Tenderness (L), CVA Tenderness (R) Extremities: Normal Inspection, Normal Range of Motion, No Pedal Edema Skin: Warm, Dry, Intact Neurological: No New Focal Deficit Psy/Mental Status: Alert, Normal Affect, Normal Mood - Problem List & Annotations (1) SIRS due to infectious process without acute organ dysfunction SNOMED Code(s): 88247460894830, [id number] Code(s): UMD7649 - Status: Acute Priority: High Current Visit: Yes (2) Pyelonephritis SNOMED Code(s): 24584691 Code(s): N12 - TUBULO-INTERSTITIAL NEPHRITIS, NOT SPCF ACUTE OR CHRONIC Status: Acute Priority: High Current Visit: Yes (3) Hypokalemia due to loss of potassium SNOMED Code(s): 61333475 Code(s): E87.6 - HYPOKALEMIA Status: Resolved Priority: High Current Visit: Yes (4) Morbid obesity with BMI of 40.0-44.9, adult SNOMED Code(s): 091692711, 67423388081087 Code(s): E66.01 - MORBID (SEVERE) OBESITY DUE TO EXCESS CALORIES; Z68.41 - BODY MASS INDEX (BMI) 40.0-44.9, ADULT Status: Chronic Priority: Medium Current Visit: Yes (5) Gram-positive cocci bacteremia SNOMED Code(s): 088589246668, 038095252646 Code(s): R78.81 - BACTEREMIA Status: Acute Priority: High Current Visit : Yes - Problem List Review Problem List Initiated/Reviewed/Updated: Yes - My Orders Last 24 Hours: My Active Orders 09/20/18 10:57 Oxygen Therapy [RC] PRN Up ad Gail [RC] ASDIRECTED Vital Signs [RC] Q4H Acetaminophen [Tylenol] 650 mg PO Q4H PRN Docusate Sodium [Colace] 100 mg PO BID PRN Morphine 2 mg IVPUSH Q2H PRN Ondansetron [Zofran ODT] 4 mg PO Q6H PRN Temazepam [Restoril] 15 mg PO BEDTIME PRN oxyCODONE 5 mg PO Q4H PRN Resuscitation Status Routine 09/20/18 11:00 Enoxaparin [Lovenox] 40 mg SUBCUT Q24H NS + KCl 20mEq/L [Normal Saline with 20 mEq KCl] 1,000 ml IV ASDIRECTED 09/20/18 14:16 Communication Order [RC] ROUTINE 09/20/18 Lunch Regular Diet [DIET] 09/21/18 05:11 BASIC METABOLIC PANEL,BMP [CHEM] AM CBC WITH AUTO DIFF [HEME] AM 09/21/18 09:00 Meropenem [Merrem] 1 gm Sodium Chloride 0.9% [Normal Saline] 100 ml IV Q8H - Plan Plan:: The patient is a 32-year-old lady who had been admitted secondary to pyelonephritis. The patient's blood cultures did have a Gram stain which showed large amount of gram-positive cocci. Cultures are currently pending. The patient had been previously on ceftriaxone and this is been changed to meropenem 1 g IV every 8 hours. The patient will also have her pain controlled with the use of narcotic pain medications. She is still on IV fluids of normal saline at 125 mL per hour. The patient's previously noted hypokalemia has resolved. She has been encouraged to ambulate. She'll be kept on a regular diet as tolerated. The patient's antibiotics will be changed once cultures have returned. She should be likely appropriate for discharge in 1-2 days. He laboratory studies been ordered.
[2018-09-21] MEDS: oxyCODONE 5 MG Tab PO PRN ×4 (06:05→21:21)
[2018-09-21] MEDS: NS + KCl 20mEq/L 1,000 ML IV SCH (06:06)
[2018-09-21 06:25] LABS: CHLORIDE,CL 104 mmol/L (98-107); SODIUM,NA 137 mmol/L (136-145)
[2018-09-21] MEDS ORDERED: Meropenem 1 GM in Sodium Chloride 0.9% 100 ML IV SCH (09:00)
[2018-09-21] MEDS: Sodium Chloride 0.9% 1,000 ML IV SCH ×2 (09:28→21:17)
[2018-09-21] MEDS: Meropenem 1 GM in Sodium Chloride 0.9% 100 ML IV SCH ×2 (09:29→16:49)
[2018-09-21] MEDS: Ondansetron 4 MG Tab.DIS PO PRN (09:29)
[2018-09-21] MEDS: Enoxaparin 40 MG/0.4 ML Syringe SUBCUT SCH (10:34)
[2018-09-21] MEDS: Temazepam 15 MG Cap PO PRN (23:11)
[2018-09-22] MEDS: Meropenem 1 GM in Sodium Chloride 0.9% 100 ML IV SCH ×3 (00:59→16:41)
--- NOTE | 2018-09-22 06:00 | PCM.PN ---
- General Info Date of Service: 09/22/18 Admission Dx/Problem (Free Text): Admission Diagnosis/Problem Admission Diagnosis/Problem Pyelonephritis, systemic inflammatory response syndrome, flank and back pain Subjective Update: The patient is a 32-year-old lady who was admitted to acute hospitalization on September 20, 2018 secondary to pyelonephritis. Patient says that she is doing somewhat better today. She is still had some chills. She is also complaining of a cold sore to her upper lip. The patient is still having back and flank pain although this is lessened. Functional Status: Reports: Pain Controlled - Review of Systems General: Reports: Fever HEENT: Reports: No Symptoms Pulmonary: Reports: No Symptoms Cardiovascular: Reports: No Symptoms Gastrointestinal: Reports: Abdominal Pain Genitourinary: Reports: No Symptoms Musculoskeletal: Reports: Back Pain Skin: Reports: No Symptoms Neurological: Reports: No Symptoms Psychiatric: Reports: No Symptoms - Patient Data Vitals - Most Recent: Last Vital Signs Temp 38.1 C 09/22/18 04:12 Pulse 98 09/22/18 04:12 Resp 19 09/22/18 04:12 BP 105/56 L 09/22/18 04:12 Pulse Ox 96 09/22/18 04:12 Weight - Most Recent: 113.398 kg I&O - Last 24 Hours: Intake & Output 09/21/18 09/21/18 09/22/18 14:59 22:59 06:59 Intake Total 2353 1114 Output Total 1000 Balance 1353 1114 Lab Results Last 24 Hours: Laboratory Results - last 24 hr 09/21/18 09/21/18 Range/Units 05:30 05:30 WBC 11.86 H (4.0-11.0) K/uL RBC 4.16 L (4.30-5.90) M/uL Hgb 10.9 L (12.0-16.0) g/dL Hct 34.4 L (36.0-46.0) % MCV 82.7 (80.0-98.0) fL MCH 26.2 L (27.0-32.0) pg MCHC 31.7 (31.0-37.0) g/dL RDW Std Deviation 46.9 (28.0-62.0) fl RDW Coeff of Jim 15 (11.0-15.0) % Plt Count 284 (150-400) K/uL MPV 9.40 (7.40-12.00) fL Add Manual Diff YES Neutrophils % (Manual) 75 (48.0-80.0) % Band Neutrophils % 1 % Lymphocytes % (Manual) 18 (16.0-40.0) % Monocytes % (Manual) 5 (0.0-15.0) % Basophils % (Manual) 1 (0.0-1.5) % Nucleated RBC % 0.0 /100WBC Absolute Seg Neuts 8.9 H (1.4-5.7) Band Neutrophils # 0.1 Lymphocytes # (Manual) 2.1 (0.6-2.4) Monocytes # (Manual) 0.6 (0.0-0.8) Basophils # (Manual) 0.1 (0.0-0.1) Nucleated RBCs # 0 K/uL Sodium 137 (136-145) mmol/L Potassium 4.4 (3.5-5.1) mmol/L Chloride 104 (98-107) mmol/L Carbon Dioxide 22.3 (21.0-32.0) mmol/L BUN 10 (7.0-18.0) mg/dL Creatinine 0.9 (0.6-1.0) mg/dL Est Cr Clr Drug Dosing 78.93 mL/min Estimated GFR (MDRD) > 60.0 ml/min Glucose 117 H (74-106) mg/dL Calcium 8.5 (8.5-10.1) mg/dL Santosh Results Last 24 Hours: Microbiology 09/20/18 09:50 Aerobic Blood Culture - Preliminary Blood - Venous - Lab Draw NO GROWTH AFTER 1 DAY Anaerobic Blood Culture - Preliminary NO GROWTH AFTER 1 DAY 09/20/18 09:10 Aerobic Blood Culture - Preliminary Blood - Venous Anaerobic Blood Culture - Preliminary NO GROWTH AFTER 1 DAY Med Orders - Current: Current Medications Acetaminophen (Tylenol) 650 mg PO Q4H PRN PRN Reason: Pain (Mild 1-3)/fever Last Admin: 09/21/18 21:27 Dose: 650 mg Docusate Sodium (Colace) 100 mg PO BID PRN PRN Reason: Constipation Enoxaparin Sodium (Lovenox) 40 mg SUBCUT Q24H [facility] Last Admin: 09/21/18 10:34 Dose: 40 mg Meropenem 1 gm/ Sodium (Chloride) 100 mls @ 200 mls/hr IV Q8H [facility] Last Admin: 09/22/18 00:59 Dose: 200 mls/hr Sodium Chloride (Normal Saline) 1,000 mls @ 100 mls/hr IV ASDIRECTED [facility] Last Admin: 09/21/18 21:17 Dose: 100 mls/hr Ondansetron HCl (Zofran Odt) 4 mg PO Q6H PRN PRN Reason: nausea, able to take PO Last Admin: 09/21/18 09:29 Dose: 4 mg Oxycodone HCl (Oxycodone) 5 mg PO Q4H PRN PRN Reason: Pain (moderate 4-6) Last Admin: 09/21/18 21:21 Dose: 5 mg Sodium Chloride (Saline Flush) 10 ml FLUSH ASDIRECTED PRN PRN Reason: Keep Vein Open Last Admin: 09/20/18 09:24 Dose: 10 ml Sodium Chloride (Saline Flush) 2.5 ml FLUSH ASDIRECTED PRN PRN Reason: Keep Vein Open Last Admin: 09/20/18 09:24 Dose: 2.5 ml Temazepam (Restoril) 15 mg PO BEDTIME PRN PRN Reason: Sleep Last Admin: 09/21/18 23:11 Dose: 15 mg Valacyclovir HCl (Valtrex) 500 mg PO BID [facility] Discontinued Medications Ceftriaxone Sodium/Dextrose 1 (gm/ Premix) 50 mls @ 100 mls/hr IV ONETIME ONE Stop: 09/20/18 09:38 Last Admin: 09/20/18 10:18 Dose: 100 mls/hr Sodium Chloride (Normal Saline) 1,000 mls @ 999 mls/hr IV STAT ONE Stop: 09/20/18 10:09 Last Admin: 09/20/18 09:23 Dose: 999 mls/hr Meropenem 1 gm/ Sodium (Chloride) 100 mls @ 200 mls/hr IV Q8H [facility] Last Admin: 09/21/18 10:21 Dose: Not Given Potassium Chloride/Sodium Chloride (Normal Saline With 20 Meq Kcl) 1,000 mls @ 100 mls/hr IV ASDIRECTED [facility] Last Admin: 09/21/18 06:06 Dose: 100 mls/hr Morphine Sulfate (Morphine) 2 mg IVPUSH Q2H PRN PRN Reason: Pain (severe 7-10) Stop: 09/21/18 10:58 - Exam Quality Assessment: No: Supplemental Oxygen General: Alert, Oriented, Cooperative, Mild Distress HEENT: Pupils Equal, Pupils Reactive, EOMI, Mucous Membr. Moist/[place] Neck: Supple, Trachea Midline Lungs: Clear to Auscultation, Normal Respiratory Effort Cardiovascular: Regular Rate, Regular Rhythm GI/Abdominal Exam: Normal Bowel Sounds, No Distention, Tender (Suprapubic area) . No: Guarding, Rigid, Rebound Back Exam: Normal Inspection, Full Range of Motion. No: CVA Tenderness (L), CVA Tenderness (R) Extremities: Normal Inspection, No Pedal Edema Skin: Warm, Dry, Intact Neurological: No New Focal Deficit Psy/Mental Status: Alert, Normal Affect, Normal Mood - Problem List & Annotations (1) SIRS due to infectious process without acute organ dysfunction SNOMED Code(s): 26834067192766, 69727936104230 Code(s): MEI9164 - Status: Acute Priority: High Current Visit: Yes (2) Pyelonephritis SNOMED Code(s): 93233970 Code(s): N12 - TUBULO-INTERSTITIAL NEPHRITIS, NOT SPCF ACUTE OR CHRONIC Status: Acute Priority: High Current Visit: Yes (3) Hypokalemia due to loss of potassium SNOMED Code(s): 62271217 Code(s): E87.6 - HYPOKALEMIA Status: Resolved Priority: High Current Visit: Yes (4) Morbid obesity with BMI of 40.0-44.9, adult SNOMED Code(s): 116745846, 17803359084303 Code(s): E66.01 - MORBID (SEVERE) OBESITY DUE TO EXCESS CALORIES; Z68.41 - BODY MASS INDEX (BMI) 40.0-44.9, ADULT Status: Chronic Priority: Medium Current Visit: Yes (5) Gram-positive cocci bacteremia SNOMED Code(s): 979114505569, 702820175879 Code(s): R78.81 - BACTEREMIA Status: Acute Priority: High Current Visit : Yes (6) Facial herpetic lesions SNOMED Code(s): 666258410304 Code(s): B00.9 - HERPESVIRAL INFECTION, UNSPECIFIED Status: Acute Priority: High Current Visit: Yes - Problem List Review Problem List Initiated/Reviewed/Updated: Yes - My Orders Last 24 Hours: My Active Orders 09/21/18 09:15 Meropenem [Merrem] 1 gm Sodium Chloride 0.9% [Normal Saline] 100 ml IV Q8H Sodium Chloride 0.9% [Normal Saline] 1,000 ml IV ASDIRECTED 09/22/18 09:00 valACYclovir [Valtrex] 500 mg PO BID - Plan Plan:: Patient is 32-year-old lady who is doing better today. Her pain is decreased. The patient has cultures that are currently pending. We'll continue the patient on meropenem until culture and sensitivities return. The patient will also have her pain controlled with the use of narcotic pain medications. She'll be kept on IV fluids secondary to the systemic inflammatory response syndrome. The patient will also be kept on DVT prophylaxis. She'll continue to have regular diet as tolerated. I've added valacyclovir 500 mg by mouth twice a day for her herpetic lesion. Repeat laboratory studies have been ordered.
[2018-09-22] MEDS: Sodium Chloride 0.9% 1,000 ML IV SCH ×2 (06:11→16:44)
[2018-09-22] MEDS: oxyCODONE 5 MG Tab PO PRN ×4 (06:14→23:39)
[2018-09-22] MEDS ORDERED: oxyCODONE 5 MG Tab PO ONE (06:33)
[2018-09-22] MEDS: Morphine 2 MG/ML Syringe IVPUSH PRN ×2 (07:37→20:38)
[2018-09-22] MEDS: valACYclovir 500 MG Tab PO SCH ×2 (09:28→20:30)
--- NOTE | 2018-09-22 09:45 | US ---
INDICATION: Right abdominal pain. TECHNIQUE: Retroperitoneal ultrasound including bilateral renal and bladder ultrasound. COMPARISON: CT 09/20/2018. FINDINGS: Right kidney measures 12.8 cm and left kidney measures 11.8 cm. No evidence for hydronephrosis in either kidney. Scarring and cortical thinning in the left mid and upper kidney unchanged from CT. Otherwise the kidneys are unremarkable. Arterial and venous blood flow confirmed to both kidneys. Urinary bladder has a prevoid volume of 158 mL and appears normal. Bilateral ureteral jets were identified indicating patency of the ureters. Urinary bladder prior to voiding measures 6.9 x 5.8 x 7.[address] the urinary bladder volume is 6 mL. Remainder negative. IMPRESSION: 1. Scarring and cortical thinning in the left kidney. Kidneys otherwise unremarkable without hydronephrosis. 2. 5-6 mL postvoid residual within the urinary bladder. Dictated by Sigifredo Ordaz MD @ Sep 22 2018 9:43AM Signed by Dr. Sigifredo Ordaz @ Sep 22 2018 9:43AM
[2018-09-22] MEDS: Enoxaparin 40 MG/0.4 ML Syringe SUBCUT SCH (11:01)
[2018-09-22] MEDS: Ondansetron 4 MG Tab.DIS PO PRN (15:19)
[2018-09-22] MEDS: Acetaminophen 325 MG Tab PO PRN (19:18)
[2018-09-23] MEDS: Meropenem 1 GM in Sodium Chloride 0.9% 100 ML IV SCH ×3 (01:14→17:52)
[2018-09-23] MEDS: Sodium Chloride 0.9% 1,000 ML IV SCH ×2 (01:15→14:33)
[2018-09-23] MEDS: Acetaminophen 325 MG Tab PO PRN ×3 (03:51→18:50)
[2018-09-23 06:01] LABS: CHLORIDE,CL 105 mmol/L (98-107); SODIUM,NA 138 mmol/L (136-145)
[2018-09-23] MEDS ORDERED: Phenol 1.4% Oral Spray 177 ML Bottle MUCMEM PRN (06:50)
--- NOTE | 2018-09-23 07:51 | PCM.PN ---
- General Info Date of Service: 09/23/18 Admission Dx/Problem (Free Text): Admission Diagnosis/Problem Admission Diagnosis/Problem Pyelonephritis, systemic inflammatory response syndrome, flank and back pain Subjective Update: The patient is a 32-year-old lady who was admitted to acute hospitalization secondary to acute pyelonephritis. The patient has been febrile. She still has back pain. No other complaints at this time. Functional Status: Reports: Pain Controlled, Tolerating Diet - Review of Systems General: Reports: Fever, Weakness, Fatigue, Chills HEENT: Reports: No Symptoms Pulmonary: Reports: No Symptoms Cardiovascular: Reports: No Symptoms Gastrointestinal: Reports: No Symptoms Genitourinary: Reports: No Symptoms Musculoskeletal: Reports: Back Pain Skin: Reports: No Symptoms Neurological: Reports: No Symptoms Psychiatric: Reports: No Symptoms - Patient Data Vitals - Most Recent: Last Vital Signs Temp 39.3 C H 09/23/18 04:00 Pulse 113 H 09/23/18 04:00 Resp 16 09/23/18 04:00 BP 119/71 09/23/18 04:00 Pulse Ox 97 09/23/18 04:00 Weight - Most Recent: 113.398 kg I&O - Last 24 Hours: Intake & Output 09/22/18 09/23/18 09/23/18 22:59 06:59 14:59 Intake Total 700 1521 Output Total 700 1475 Balance 0 46 Lab Results Last 24 Hours: Laboratory Results - last 24 hr 09/23/18 09/23/18 Range/Units 05:37 05:37 WBC 8.51 (4.0-11.0) K/uL RBC 3.82 L (4.30-5.90) M/uL Hgb 9.7 L (12.0-16.0) g/dL Hct 31.3 L (36.0-46.0) % MCV 81.9 (80.0-98.0) fL MCH 25.4 L (27.0-32.0) pg MCHC 31.0 (31.0-37.0) g/dL RDW Std Deviation 45.2 (28.0-62.0) fl RDW Coeff of Jim 15 (11.0-15.0) % Plt Count 288 (150-400) K/uL MPV 9.40 (7.40-12.00) fL Neut % (Auto) 69.3 (48.0-80.0) % Lymph % (Auto) 21.5 (16.0-40.0) % [place] % (Auto) 8.3 (0.0-15.0) % Eos % (Auto) 0.7 (0.0-7.0) % Baso % (Auto) 0.2 (0.0-1.5) % Neut # (Auto) 5.9 H (1.4-5.7) K/uL Lymph # (Auto) 1.8 (0.6-2.4) K/uL [place] # (Auto) 0.7 (0.0-0.8) K/uL Eos # (Auto) 0.1 (0.0-0.7) K/uL Baso # (Auto) 0.0 (0.0-0.1) K/uL Nucleated RBC % 0.0 /100WBC Nucleated RBCs # 0 K/uL Sodium 138 (136-145) mmol/L Potassium 4.1 (3.5-5.1) mmol/L Chloride 105 (98-107) mmol/L Carbon Dioxide 23.4 (21.0-32.0) mmol/L BUN 5 L (7.0-18.0) mg/dL Creatinine 0.8 (0.6-1.0) mg/dL Est Cr Clr Drug Dosing 88.79 mL/min Estimated GFR (MDRD) > 60.0 ml/min Glucose 115 H (74-106) mg/dL Calcium 8.3 L (8.5-10.1) mg/dL Santosh Results Last 24 Hours: Microbiology 09/20/18 09:10 Urine Culture - Final Urine, Clean Catch Escherichia Coli 09/20/18 09:10 Aerobic Blood Culture - Preliminary Blood - Venous Anaerobic Blood Culture - Preliminary NO GROWTH AFTER 2 DAYS 09/20/18 09:50 Aerobic Blood Culture - Preliminary Blood - Venous - Lab Draw NO GROWTH AFTER 2 DAYS Anaerobic Blood Culture - Preliminary NO GROWTH AFTER 2 DAYS Med Orders - Current: Current Medications Acetaminophen (Tylenol) 650 mg PO Q4H PRN PRN Reason: Pain (Mild 1-3)/fever Last Admin: 09/23/18 03:51 Dose: 650 mg Docusate Sodium (Colace) 100 mg PO BID PRN PRN Reason: Constipation Enoxaparin Sodium (Lovenox) 40 mg SUBCUT Q24H [facility] Last Admin: 09/22/18 11:01 Dose: 40 mg Meropenem 1 gm/ Sodium (Chloride) 100 mls @ 200 mls/hr IV Q8H [facility] Last Admin: 09/23/18 01:14 Dose: 200 mls/hr Sodium Chloride (Normal Saline) 1,000 mls @ 100 mls/hr IV ASDIRECTED [facility] Last Admin: 09/23/18 01:15 Dose: 100 mls/hr Cefepime HCl 1 gm/ Premix 50 mls @ 100 mls/hr IV Q8H [facility] Morphine Sulfate (Morphine) 2 mg IVPUSH Q2H PRN PRN Reason: Pain (severe 7-10) Last Admin: 09/22/18 20:38 Dose: 2 mg Ondansetron HCl (Zofran Odt) 4 mg PO Q6H PRN PRN Reason: nausea, able to take PO Last Admin: 09/22/18 15:19 Dose: 4 mg Oxycodone HCl (Oxycodone) 5 mg PO Q4H PRN PRN Reason: Pain (moderate 4-6) Last Admin: 09/22/18 23:39 Dose: 5 mg Phenol/Menthol (Chloraseptic Throat [place]) 2 ml MUCMEM Q2H PRN PRN Reason: Sore Throat Sodium Chloride (Saline Flush) 10 ml FLUSH ASDIRECTED PRN PRN Reason: Keep Vein Open Last Admin: 09/20/18 09:24 Dose: 10 ml Sodium Chloride (Saline Flush) 2.5 ml FLUSH ASDIRECTED PRN PRN Reason: Keep Vein Open Last Admin: 09/20/18 09:24 Dose: 2.5 ml Temazepam (Restoril) 15 mg PO BEDTIME PRN PRN Reason: Sleep Last Admin: 09/21/18 23:11 Dose: 15 mg Valacyclovir HCl (Valtrex) 500 mg PO BID [facility] Last Admin: 09/22/18 20:30 Dose: 500 mg Discontinued Medications Ceftriaxone Sodium/Dextrose 1 (gm/ Premix) 50 mls @ 100 mls/hr IV ONETIME ONE Stop: 09/20/18 09:38 Last Admin: 09/20/18 10:18 Dose: 100 mls/hr Sodium Chloride (Normal Saline) 1,000 mls @ 999 mls/hr IV STAT ONE Stop: 09/20/18 10:09 Last Admin: 09/20/18 09:23 Dose: 999 mls/hr Meropenem 1 gm/ Sodium (Chloride) 100 mls @ 200 mls/hr IV Q8H [facility] Last Admin: 09/21/18 10:21 Dose: Not Given Potassium Chloride/Sodium Chloride (Normal Saline With 20 Meq Kcl) 1,000 mls @ 100 mls/hr IV ASDIRECTED [facility] Last Admin: 09/21/18 06:06 Dose: 100 mls/hr Morphine Sulfate (Morphine) 2 mg IVPUSH Q2H PRN PRN Reason: Pain (severe 7-10) Stop: 09/21/18 10:58 Oxycodone HCl (Oxycodone) 5 mg PO ONETIME ONE Stop: 09/22/18 06:34 Last Admin: 09/22/18 06:43 Dose: 5 mg - Exam Quality Assessment: No: Supplemental Oxygen General: Alert, Oriented, Cooperative, Mild Distress HEENT: Pupils Equal, Pupils Reactive, EOMI, Mucous Membr. Moist/[place] Neck: Supple, Trachea Midline Lungs: Clear to Auscultation, Normal Respiratory Effort Cardiovascular: Regular Rhythm, Tachycardia (112 on monitor) GI/Abdominal Exam: Normal Bowel Sounds, Soft, Non-Tender, No Distention. No: Guarding, Rigid, Rebound Back Exam: Normal Inspection, Full Range of Motion. No: CVA Tenderness (L), CVA Tenderness (R) Extremities: Normal Inspection, Normal Range of Motion, No Pedal Edema Skin: Warm, Dry, Intact Neurological: No New Focal Deficit Psy/Mental Status: Alert, Normal Affect, Normal Mood - Problem List & Annotations (1) SIRS due to infectious process without acute organ dysfunction SNOMED Code(s): 25898233790626, 81777778849034 Code(s): [id number] - Status: Acute Priority: High Current Visit: Yes (2) Pyelonephritis SNOMED Code(s): 07662045 Code(s): N12 - TUBULO-INTERSTITIAL NEPHRITIS, NOT SPCF ACUTE OR CHRONIC Status: Acute Priority: High Current Visit: Yes (3) Hypokalemia due to loss of potassium SNOMED Code(s): 47558244 Code(s): E87.6 - HYPOKALEMIA Status: Resolved Priority: High Current Visit: Yes (4) Morbid obesity with BMI of 40.0-44.9, adult SNOMED Code(s): 938830119, 22325623930605 Code(s): E66.01 - MORBID (SEVERE) OBESITY DUE TO EXCESS CALORIES; Z68.41 - BODY MASS INDEX (BMI) 40.0-44.9, ADULT Status: Chronic Priority: Medium Current Visit: Yes (5) Gram-positive cocci bacteremia SNOMED Code(s): 896510399273, 158302812034 Code(s): R78.81 - BACTEREMIA Status: Resolved Priority: High Current Visit: Yes (6) Facial herpetic lesions SNOMED Code(s): 039759279173 Code(s): B00.9 - HERPESVIRAL INFECTION, UNSPECIFIED Status: Acute Priority: High Current Visit: Yes - Problem List Review Problem List Initiated/Reviewed/Updated: Yes - My Orders Last 24 Hours: My Active Orders 09/22/18 07:07 Morphine 2 mg IVPUSH Q2H PRN 09/22/18 09:00 valACYclovir [Valtrex] 500 mg PO BID 09/23/18 06:50 Phenol [Chloraseptic Throat [place]] 2 ml MUCMEM Q2H PRN 09/23/18 07:30 Cefepime [Maxipime in D5W 1 GM/50 ML] 1 gm Premix Bag 1 bag IV Q8H - Plan Plan:: The patient is a 32-year-old lady who is still somewhat better today. She was febrile with a temperature of 39.3 Celsius earlier. The patient has cultures that have been noted to be pansensitive Escherichia coli. The patient had been on meropenem and cefepime was added for synergistic effects. The patient also was noted to have blood cultures which were positive for coag negative staph which were thought to be contaminant as these weren't just one bottle only. The patient should continue to have a regular diet as tolerated. She is also on valacyclovir 500 mg by mouth twice a day for labial herpetic lesion. Repeat laboratory studies have been ordered. The patient should be appropriate for discharge once she has been afebrile for at least 24 hours. Patient also continue with IV fluids for her systemic inflammatory response syndrome. She's been encouraged to ambulate.
[2018-09-23] MEDS: oxyCODONE 5 MG Tab PO PRN ×3 (07:52→20:06)
[2018-09-23] MEDS: Cefepime 1 GM in Premix Bag 1 BAG IV SCH ×3 (07:53→23:02)
[2018-09-23] MEDS: valACYclovir 500 MG Tab PO SCH ×2 (09:22→20:06)
[2018-09-23] MEDS: Enoxaparin 40 MG/0.4 ML Syringe SUBCUT SCH (11:22)
[2018-09-23] MEDS: Ondansetron 4 MG Tab.DIS PO PRN (14:32)
[2018-09-24] MEDS: Meropenem 1 GM in Sodium Chloride 0.9% 100 ML IV SCH ×2 (00:43→09:24)
[2018-09-24] MEDS: oxyCODONE 5 MG Tab PO PRN ×2 (01:16→09:21)
[2018-09-24] MEDS: Temazepam 15 MG Cap PO PRN (01:17)
[2018-09-24] MEDS: Sodium Chloride 0.9% 1,000 ML IV SCH (02:59)
[2018-09-24] MEDS: Cefepime 1 GM in Premix Bag 1 BAG IV SCH (06:42)
[2018-09-24 08:00] VITALS: BP 138/82
--- NOTE | 2018-09-24 08:44 | PCM.DCSUM1 ---
Discharge Summary - Hospital Course Diagnosis: Stroke: No - Discharge Data Discharge Date: 09/24/18 Discharge Disposition: Home, Self-Care 01 Condition: Good - Discharge Diagnosis/Problem(s) (1) SIRS due to infectious process without acute organ dysfunction SNOMED Code(s): 70693616999108, [id number] ICD Code: [id number] - Status: Resolved Priority: High Current Visit: Yes (2) Pyelonephritis SNOMED Code(s): 17883470 ICD Code: N12 - TUBULO-INTERSTITIAL NEPHRITIS, NOT SPCF ACUTE OR CHRONIC Status: Acute Priority: High Current Visit: Yes (3) Hypokalemia due to loss of potassium SNOMED Code(s): 63197922 ICD Code: E87.6 - HYPOKALEMIA Status: Resolved Priority: High Current Visit: Yes (4) Morbid obesity with BMI of 40.0-44.9, adult SNOMED Code(s): 079004940, 57739009991611 ICD Code: E66.01 - MORBID (SEVERE) OBESITY DUE TO EXCESS CALORIES; Z68.41 - BODY MASS INDEX (BMI) 40.0-44.9, ADULT Status: Chronic Priority: Medium Current Visit: Yes (5) Gram-positive cocci bacteremia SNOMED Code(s): 247835697139, 918686050935 ICD Code: R78.81 - BACTEREMIA Status: Resolved Priority: High Current Visit: Yes (6) Facial herpetic lesions SNOMED Code(s): 715371342042 ICD Code: B00.9 - HERPESVIRAL INFECTION, UNSPECIFIED Status: Acute Priority: High Current Visit: Yes - Patient Summary/Data Hospital Course: The patient is a 32-year-old lady who had presented to the emergency department with fever and chills along with left-sided flank pain and lower back pain. The patient was found to have systemic inflammatory response syndrome as a result of urinary tract infection. The patient was admitted as an inpatient due to the severity of her symptoms. A CT scan obtained at the time of admission on September showed left perirenal stranding suggestive of an underlying infectious process such as pyelonephritis or recently passed stone. Incidental finding of cholelithiasis was also noted. On renal ultrasound the patient had on September 22, 2018 showed scarring and cortical thinning of left kidney. The kidneys were otherwise unremarkable. Initially on presentation the patient was noted to have a white blood cell count of 12.97. The patient was placed on broad-spectrum IV antibiotics consisting of Rocephin at first and then changed to meropenem. By day of discharge the patient's white count had normalized. The patient had tolerated these antibiotics well. During hospitalization the patient had remained febrile and cultures were resulted. The patient was noted to have Escherichia coli urinary tract infection which was pansensitive. Because of the severity of the patient's symptoms she was also placed on cefepime for synergistic action with meropenem. By discharge the patient had remained afebrile. She had improved to the point that she felt like she can safely go home. She was still having some residual back pain but this was being tolerable. The patient will be discharged on Levaquin 500 mg by mouth daily for 7 days. She also had been given a prescription for tramadol 50 mg every 6 hours as needed for pain. The patient also because of her herpetic lesion had been given valacyclovir 500 mg by mouth twice a day for 2 more days. The patient has been recommended to follow-up with her primary care physician. The patient is also to have her diet as tolerated. She is to have activity as tolerated. Patient has been hemodynamically stable and she is discharged from acute hospitalization with recommendations above. - Patient Instructions Diet: Regular Diet as Tolerated Activity: As Tolerated Notify Provider of: Fever, Increased Pain - Discharge Plan *PRESCRIPTION DRUG MONITORING PROGRAM REVIEWED*: No *COPY OF PRESCRIPTION DRUG MONITORING REPORT IN PATIENT SUSAN: No Prescriptions/Med Rec: levoFLOXacin [Levaquin] 500 mg PO DAILY #5 tab traMADol [Ultram] 50 mg PO Q6H PRN #12 tab PRN Reason: Pain (Moderate 4-6) valACYclovir HCl [Valtrex] 500 mg PO BID #6 tablet Home Medications: Home Meds Control 1 dose PO DAILY 09/20/18 [History] levoFLOXacin [Levaquin] 500 mg PO DAILY #5 tab 09/24/18 [Rx] traMADol [Ultram] 50 mg PO Q6H PRN #12 tab 09/24/18 [Rx] valACYclovir HCl [Valtrex] 500 mg PO BID #6 tablet 09/24/18 [Rx] Oxygen Therapy Mode: Room Air Patient Handouts: Pyelonephritis, Adult, [id number], Tramadol tablets, Levofloxacin tablets Referrals: Jordan Lemus MD [Primary Care Provider] - 10/01/18 9:00 am - Discharge Summary/Plan Comment DC Time >30 min.: Yes - General Info Date of Service: 09/24/18 Admission Dx/Problem (Free Text: Admission Diagnosis/Problem Admission Diagnosis/Problem Pyelonephritis, systemic inflammatory response syndrome, flank and back pain Subjective Update: The patient was admitted secondary to systemic inflammatory response syndrome due to urinary source. This was diagnosis pyelonephritis. The patient is much better today. She feels like she can go home. Functional Status: Reports: Pain Controlled - Review of Systems General: Reports: No Symptoms HEENT: Reports: No Symptoms Pulmonary: Reports: No Symptoms Cardiovascular: Reports: No Symptoms Gastrointestinal: Reports: No Symptoms Genitourinary: Reports: No Symptoms Musculoskeletal: Reports: No Symptoms Skin: Reports: No Symptoms Neurological: Reports: No Symptoms Psychiatric: Reports: No Symptoms - Patient Data Vitals - Most Recent: Last Vital Signs Temp 36.6 C 09/24/18 07:59 Pulse 91 09/24/18 07:59 Resp 18 09/24/18 07:59 BP 138/82 09/24/18 07:59 Pulse Ox 96 09/24/18 07:59 Weight - Most Recent: 113.398 kg I&O - Last 24 hours: Intake & Output 09/23/18 09/24/18 09/24/18 22:59 06:59 14:59 Intake Total 1150 1542 Output Total 1200 Balance 1150 342 TERESA Results - Last 24 hrs: Microbiology 09/20/18 09:50 Aerobic Blood Culture - Preliminary Blood - Venous - Lab Draw NO GROWTH AFTER 3 DAYS Anaerobic Blood Culture - Preliminary NO GROWTH AFTER 3 DAYS 09/20/18 09:10 Aerobic Blood Culture - Preliminary Blood - Venous Anaerobic Blood Culture - Preliminary NO GROWTH AFTER 3 DAYS Med Orders - Current: Current Medications Acetaminophen (Tylenol) 650 mg PO Q4H PRN PRN Reason: Pain (Mild 1-3)/fever Last Admin: 09/23/18 18:50 Dose: 650 mg Docusate Sodium (Colace) 100 mg PO BID PRN PRN Reason: Constipation Last Admin: 09/23/18 09:49 Dose: 100 mg Enoxaparin Sodium (Lovenox) 40 mg SUBCUT Q24H RIZWANA Last Admin: 09/23/18 11:22 Dose: 40 mg Meropenem 1 gm/ Sodium (Chloride) 100 mls @ 200 mls/hr IV Q8H [facility] Last Admin: 09/24/18 00:43 Dose: 200 mls/hr Sodium Chloride (Normal Saline) 1,000 mls @ 100 mls/hr IV ASDIRECTED [facility] Last Admin: 09/24/18 02:59 Dose: 100 mls/hr Cefepime HCl 1 gm/ Premix 50 mls @ 100 mls/hr IV Q8H [facility] Last Admin: 09/24/18 06:42 Dose: 100 mls/hr Morphine Sulfate (Morphine) 2 mg IVPUSH Q2H PRN PRN Reason: Pain (severe 7-10) Last Admin: 09/22/18 20:38 Dose: 2 mg Ondansetron HCl (Zofran Odt) 4 mg PO Q6H PRN PRN Reason: nausea, able to take PO Last Admin: 09/23/18 14:32 Dose: 4 mg Oxycodone HCl (Oxycodone) 5 mg PO Q4H PRN PRN Reason: Pain (moderate 4-6) Last Admin: 09/24/18 01:16 Dose: 5 mg Phenol/Menthol (Chloraseptic Throat [place]) 2 ml MUCMEM Q2H PRN PRN Reason: Sore Throat Sodium Chloride (Saline Flush) 10 ml FLUSH ASDIRECTED PRN PRN Reason: Keep Vein Open Last Admin: 09/20/18 09:24 Dose: 10 ml Sodium Chloride (Saline Flush) 2.5 ml FLUSH ASDIRECTED PRN PRN Reason: Keep Vein Open Last Admin: 09/20/18 09:24 Dose: 2.5 ml Temazepam (Restoril) 15 mg PO BEDTIME PRN PRN Reason: Sleep Last Admin: 09/24/18 01:17 Dose: 15 mg Valacyclovir HCl (Valtrex) 500 mg PO BID [facility] Last Admin: 09/23/18 20:06 Dose: 500 mg Discontinued Medications Ceftriaxone Sodium/Dextrose 1 (gm/ Premix) 50 mls @ 100 mls/hr IV ONETIME ONE Stop: 09/20/18 09:38 Last Admin: 09/20/18 10:18 Dose: 100 mls/hr Sodium Chloride (Normal Saline) 1,000 mls @ 999 mls/hr IV STAT ONE Stop: 09/20/18 10:09 Last Admin: 09/20/18 09:23 Dose: 999 mls/hr Meropenem 1 gm/ Sodium (Chloride) 100 mls @ 200 mls/hr IV Q8H [facility] Last Admin: 09/21/18 10:21 Dose: Not Given Potassium Chloride/Sodium Chloride (Normal Saline With 20 Meq Kcl) 1,000 mls @ 100 mls/hr IV ASDIRECTED [facility] Last Admin: 09/21/18 06:06 Dose: 100 mls/hr Morphine Sulfate (Morphine) 2 mg IVPUSH Q2H PRN PRN Reason: Pain (severe 7-10) Stop: 09/21/18 10:58 Oxycodone HCl (Oxycodone) 5 mg PO ONETIME ONE Stop: 09/22/18 06:34 Last Admin: 09/22/18 06:43 Dose: 5 mg - Exam Quality Assessment: Denies: Supplemental Oxygen General: Reports: Alert, Oriented, Cooperative, No Acute Distress HEENT: Reports: Pupils Equal, Pupils Reactive, EOMI, Mucous Membr. Moist/[place] Neck: Reports: Supple, Trachea Midline Lungs: Reports: Clear to Auscultation, Normal Respiratory Effort Cardiovascular: Reports: Regular Rate, Regular Rhythm GI/Abdominal Exam: Normal Bowel Sounds, Soft, Non-Tender, No Distention Back Exam: Reports: Normal Inspection, Full Range of Motion Extremities: Normal Inspection, Normal Range of Motion, No Pedal Edema Skin: Reports: Warm, Dry, Intact Neurological: Reports: No New Focal Deficit, Normal Gait Psy/Mental Status: Reports: Alert, Normal Affect, Normal Mood
[2018-09-24] MEDS: valACYclovir 500 MG Tab PO SCH (09:21)
[2018-09-24] MEDS: Enoxaparin 40 MG/0.4 ML Syringe SUBCUT SCH (13:01)
== END 2018-09-24 11:37 | disposition home or self-care (01) | DRG 463 ==
LOC: MW.ED 08:46 → INTOOBSV 10:47 → MW.MS 10:47 → OBSVTOIN 10:47
PROVIDERS: ADMIT Internal Medicine; ATTEND Internal Medicine
DX: N12 Tubulo-interstitial nephritis, not specified as acute or chronic (principal); H54.7 Unspecified visual loss; E87.6 Hypokalemia; E66.01 Morbid (severe) obesity due to excess calories; Z68.41 Body mass index [BMI] 40.0-44.9, adult; B00.9 Herpesviral infection, unspecified
CPT/HCPCS: 36415; 74176; 74176-26; 76775; 76775-26; 80048; 80053; 81001; 81025; 83605; 85025; 87040; 87086; 87088; 87186; 96361; 96365; 96366; 96367; 96372; 96375; 96376; 99283; 99285-25; A4217; A9270-GY; G0378; J0692; J0696; J1650; J2185; J2270; J3480; J7030; J7040

== ENCOUNTER 2018-11-18 12:59 | Emergency (ER) | payer BC ==
--- NOTE | 2018-11-18 13:16 | EDM.PDOC ---
ED HPI GENERAL MEDICAL PROBLEM - General Chief Complaint: Abdominal Pain Stated Complaint: PAIN IN STOMACH Time Seen by Provider: 11/18/18 13:06 Source of Information: Reports: Patient History Limitations: Reports: No Limitations - History of Present Illness INITIAL COMMENTS - FREE TEXT/NARRATIVE: HISTORY AND PHYSICAL: History of present illness: Patient is a 32-year-old female who presents to the emergency room with complaints of right upper abdominal pain that started at 0530. She has a scheduled cholecystectomy 12/02/[address] Mayen. Has been taking tramadol for her pain. Does not feel that this medication is giving her much relief today. She did have one episode of vomiting earlier today and continues to feel nauseated. Patient denies any fever, chills, headache, change in vision, syncope or near syncope. Denies any chest pain, back pain, shortness of breath or cough. Denies any diarrhea, constipation or dysuria. Patient has been eating and drinking appropriately. Review of systems: As per history of present illness and below otherwise all systems reviewed and negative. Past medical history: As per history of present illness and as reviewed below otherwise noncontributory. Surgical history: As per history of present illness and as reviewed below otherwise noncontributory. Social history: See social history for further information Family history: As per history of present illness and as reviewed below otherwise noncontributory. Physical exam: General: Well-developed and well-nourished 32-year-old female. Alert and oriented. Nontoxic appearing and in no acute distress. HEENT: Atraumatic, normocephalic, pupils equal and reactive bilaterally, negative for conjunctival pallor or scleral icterus, mucous membranes moist, trachea midline. No drooling or trismus noted. No meningeal signs. No hot potato voice noted. Lungs: Clear to auscultation, breath sounds equal bilaterally, chest nontender. Heart: S1S2, regular rate and rhythm without overt murmur Abdomen: Soft, nondistended, Right upper quad tenderness. Negative for masses. Negative for costovertebral tenderness. Skin: Intact, warm, dry. No lesions or rashes noted. Extremities: Atraumatic, moves all extremities per self without difficulty or deficits, negative for cords or calf pain. Neurovascular unremarkable. Neuro: Awake, alert, oriented. Cranial nerves II through XII unremarkable. Cerebellum unremarkable. Motor and sensory unremarkable throughout. Exam nonfocal. Notes: Lab work is unremarkable with the exception of a UTI. She does have known gallbladder disease and is scheduled to have surgery next week. No need for imaging at this time. We'll give her medications for the UTI and pain management. We discussed signs and symptoms that would prompt her to return to the emergency room. Supportive care measures were reviewed and discussed. Voices understanding and is agreeable to plan of care. Denies any further questions or concerns at this time. Diagnostics: CBC, CMP, UA, urine , lipase Therapeutics: [place], Zofran Prescription: Cipro Zofran [place] (#20) Impression: UTI Abdominal pain Plan: 1. Take the medications as prescribed. Increase your oral fluids. 2. Keep your appointment with Dr Mayen for your scheduled surgery on 12/02/2018 3. Return to the ED as needed and as discussed. Definitive disposition and diagnosis as appropriate pending reevaluation and review of above. Abdominal Pain Score (Numeric/FACES): 8 - Related Data Allergies Allergy/AdvReac Type Severity Reaction Status Date / Time ibuprofen Allergy Nausea and Verified 11/18/18 13:15 Vomiting Home Meds: Home Meds Control 1 dose PO DAILY 09/20/18 [History] traMADol [Ultram] 50 mg PO Q6H PRN #12 tab 09/24/18 [Rx] Montelukast [Singulair] 10 mg PO DAILY 11/18/18 [History] Past Medical History - Past Health History Medical/Surgical History: Denies Medical/Surgical History HEENT History: Reports: Impaired Vision Cardiovascular History: Reports: None Respiratory History: Reports: None Gastrointestinal History: Reports: None Genitourinary History: Reports: UTI, Recurrent CARE MANAGEMENT ASSISTANT History: Reports: , Spontaneous Musculoskeletal History: Reports: None Neurological History: Reports: None Psychiatric History: Reports: None Endocrine/Metabolic History: Reports: Obesity/BMI 30+ Hematologic History: Reports: Anemia Immunologic History: Reports: None Oncologic (Cancer) History: Reports: None Dermatologic History: Reports: None - Infectious Disease History Infectious Disease History: Reports: None - Past Surgical History Head Surgeries/Procedures: Reports: None HEENT Surgical History: Reports: Myringotomy w Tube(s), Other (See Below) Cardiovascular Surgical History: Reports: None Respiratory Surgical History: Reports: None GI Surgical History: Reports: None Female Surgical History: Reports: Section Endocrine Surgical History: Reports: None Musculoskeletal Surgical History: Reports: None Social & Family History - Family History Family Medical History: Noncontributory - Caffeine Use Caffeine Use: Reports: Soda - Living Situation & Occupation Living situation: Reports: , with Spouse Occupation: Employed ED ROS GENERAL - Review of Systems Review Of Systems: ROS reveals no pertinent complaints other than HPI. ED EXAM, GI/ABD - Physical Exam Exam: See Below (See dictation) Course - Vital Signs Last Recorded V/S: Last Vital Signs Temp 98.1 F 11/18/18 13:17 Pulse 104 H 11/18/18 13:17 Resp 17 11/18/18 13:17 BP 133/80 11/18/18 13:17 Pulse Ox 97 11/18/18 13:17 - Orders/Labs/Meds Orders: Active Orders 24 hr Category Date Time Status CULTURE URINE [RM] Stat Lab 11/18/18 13:40 Received Labs: Laboratory Tests 11/18/18 11/18/18 11/18/18 Range/Units 13:20 13:20 13:40 WBC 10.25 (4.0-11.0) K/uL RBC 4.70 (4.30-5.90) M/uL Hgb 12.2 (12.0-16.0) g/dL Hct 38.0 (36.0-46.0) % MCV 80.9 (80.0-98.0) fL MCH 26.0 L (27.0-32.0) pg MCHC 32.1 (31.0-37.0) g/dL RDW Std Deviation 43.5 (28.0-62.0) fl RDW Coeff of Jim 15 (11.0-15.0) % Plt Count 370 (150-400) K/uL MPV 9.10 (7.40-12.00) fL Add Manual Diff YES Neutrophils % (Manual) 53 (48.0-80.0) % Lymphocytes % (Manual) 41 H (16.0-40.0) % Monocytes % (Manual) 3 (0.0-15.0) % Eosinophils % (Manual) 2 (0.0-7.0) % Basophils % (Manual) 1 (0.0-1.5) % Nucleated RBC % 0.0 /100WBC Absolute Seg Neuts 5.4 (1.4-5.7) Lymphocytes # (Manual) 4.2 H (0.6-2.4) Monocytes # (Manual) 0.3 (0.0-0.8) Eosinophils # (Manual) 0.2 (0.0-0.7) Basophils # (Manual) 0.1 (0.0-0.1) Nucleated RBCs # 0 K/uL Sodium 139 (136-145) mmol/L Potassium 4.2 (3.5-5.1) mmol/L Chloride 105 (98-107) mmol/L Carbon Dioxide 25.3 (21.0-32.0) mmol/L BUN 13 (7.0-18.0) mg/dL Creatinine 0.7 (0.6-1.0) mg/dL Est Cr Clr Drug Dosing 105.74 mL/min Estimated GFR (MDRD) > 60.0 ml/min Glucose 88 (74-106) mg/dL Calcium 8.8 (8.5-10.1) mg/dL Total Bilirubin 0.2 (0.2-1.0) mg/dL AST 10 L (15-37) IU/L ALT 15 (14-63) IU/L Alkaline Phosphatase 80 (46-116) U/L Total Protein 7.9 (6.4-8.2) g/dL Albumin 3.1 L (3.4-5.0) g/dL Globulin 4.8 H (2.6-4.0) g/dL Albumin/Globulin Ratio 0.7 L (0.9-1.6) Lipase 74 (73-393) U/L Urine Color YELLOW Urine Appearance SLT CLOUDY Urine pH 6.0 (5.0-8.0) Ur Specific [place] 1.015 (1.001-1.035) Urine Protein TRACE H (NEGATIVE) mg/dL Urine Glucose (UA) NEGATIVE (NEGATIVE) mg/dL Urine Ketones NEGATIVE (NEGATIVE) mg/dL Urine Occult Blood SMALL H (NEGATIVE) Urine Nitrite NEGATIVE (NEGATIVE) Urine Bilirubin NEGATIVE (NEGATIVE) Urine Urobilinogen 0.2 (<2.0) EU/dL Ur Leukocyte Esterase MODERATE H (NEGATIVE) Urine RBC 4-7 (0-2/HPF) Urine WBC 15-20 (0-5/HPF) Ur Epithelial Cells FEW (NONE-FEW) Urine Bacteria RARE (NEGATIVE) Urine Mucus LIGHT (NONE-MOD) Urine HCG, Qual (NEGATIVE) 11/18/18 Range/Units 13:40 WBC (4.0-11.0) K/uL RBC (4.30-5.90) M/uL Hgb (12.0-16.0) g/dL Hct (36.0-46.0) % MCV (80.0-98.0) fL MCH (27.0-32.0) pg MCHC (31.0-37.0) g/dL RDW Std Deviation (28.0-62.0) fl RDW Coeff of Jim (11.0-15.0) % Plt Count (150-400) K/uL MPV (7.40-12.00) fL Add Manual Diff Neutrophils % (Manual) (48.0-80.0) % Lymphocytes % (Manual) (16.0-40.0) % Monocytes % (Manual) (0.0-15.0) % Eosinophils % (Manual) (0.0-7.0) % Basophils % (Manual) (0.0-1.5) % Nucleated RBC % /100WBC Absolute Seg Neuts (1.4-5.7) Lymphocytes # (Manual) (0.6-2.4) Monocytes # (Manual) (0.0-0.8) Eosinophils # (Manual) (0.0-0.7) Basophils # (Manual) (0.0-0.1) Nucleated RBCs # K/uL Sodium (136-145) mmol/L Potassium (3.5-5.1) mmol/L Chloride (98-107) mmol/L Carbon Dioxide (21.0-32.0) mmol/L BUN (7.0-18.0) mg/dL Creatinine (0.6-1.0) mg/dL Est Cr Clr Drug Dosing mL/min Estimated GFR (MDRD) ml/min Glucose (74-106) mg/dL Calcium (8.5-10.1) mg/dL Total Bilirubin (0.2-1.0) mg/dL AST (15-37) IU/L ALT (14-63) IU/L Alkaline Phosphatase (46-116) U/L Total Protein (6.4-8.2) g/dL Albumin (3.4-5.0) g/dL Globulin (2.6-4.0) g/dL Albumin/Globulin Ratio (0.9-1.6) Lipase (73-393) U/L Urine Color Urine Appearance Urine pH (5.0-8.0) Ur Specific [place] (1.001-1.035) Urine Protein (NEGATIVE) mg/dL Urine Glucose (UA) (NEGATIVE) mg/dL Urine Ketones (NEGATIVE) mg/dL Urine Occult Blood (NEGATIVE) Urine Nitrite (NEGATIVE) Urine Bilirubin (NEGATIVE) Urine Urobilinogen (<2.0) EU/dL Ur Leukocyte Esterase (NEGATIVE) Urine RBC (0-2/HPF) Urine WBC (0-5/HPF) Ur Epithelial Cells (NONE-FEW) Urine Bacteria (NEGATIVE) Urine Mucus (NONE-MOD) Urine HCG, Qual NEGATIVE (NEGATIVE) Meds: Medications Discontinued Medications Generic Name Dose Route Start Last Admin Trade Name Freq PRN Reason Stop Dose Admin Hydrocodone Bitart/Acetaminophen 1 tab 11/18/18 13:36 11/18/18 13:46 [place] 325-5 Mg PO 11/18/18 13:37 1 tab ONETIME ONE Administration Ondansetron HCl 4 mg 11/18/18 13:22 11/18/18 13:46 Zofran Odt PO 11/18/18 13:23 4 mg ONETIME ONE Administration Departure - Departure Time of Disposition: 14:30 Disposition: Home, Self-Care 01 Clinical Impression: UTI (urinary tract infection) Qualifiers: Urinary tract infection type: acute cystitis Hematuria presence: with hematuria Qualified Code(s): N30.01 - Acute cystitis with hematuria Abdominal pain Qualifiers: Abdominal location: right upper quadrant Qualified Code(s): R10.11 - Right upper quadrant pain - Discharge Information Instructions: Urinary Tract Infection, Adult, [id number], Abdominal Pain, Adult, [id number] Referrals: PCP,Unknown [Primary Care Provider] - Forms: ED Department Discharge Additional Instructions: The following information is given to patients seen in the emergency department who are being discharged to home. This information is to outline your options for follow-up care. We provide all patients seen in our emergency department with a follow-up referral. The need for follow-up, as well as the timing and circumstances, are variable depending upon the specifics of your emergency department visit. If you don't have a primary care physician on staff, we will provide you with a referral. We always advise you to contact your personal physician following an emergency department visit to inform them of the circumstance of the visit and for follow-up with them and/or the need for any referrals to a consulting specialist. The emergency department will also refer you to a specialist when appropriate. This referral assures that you have the opportunity for follow-up care with a specialist. All of these measure are taken in an effort to provide you with optimal care, which includes your follow-up. Under all circumstances we always encourage you to contact your private physician who remains a resource for coordinating your care. When calling for follow-up care, please make the office aware that this follow-up is from your recent emergency room visit. If for any reason you are refused follow-up, please contact the [facility] Emergency Department at and asked to speak to the emergency department charge nurse. [facility] Primary Care [facility] [place] [id number] [facility] Specialty Care - General Surgery Professional Building [address] [place] [address], [address] [place] [address] 1. Take the medications as prescribed. Increase your oral fluids. 2. Keep your appointment with Dr Mayen for your scheduled surgery on 12/02/2018 3. Return to the ED as needed and as discussed. - My Orders Last 24 Hours: My Active Orders 11/18/18 13:40 CULTURE URINE [RM] Stat - Assessment/Plan Last 24 Hours: My Active Orders 11/18/18 13:40 CULTURE URINE [RM] Stat
[2018-11-18 13:20] VITALS: BP 133/80
[2018-11-18] MEDS ORDERED: Ondansetron 4 MG Tab.DIS PO ONE (13:22)
[2018-11-18] MEDS ORDERED: Acetaminophen/HYDROcodone 325-5 MG Tab PO ONE (13:36)
[2018-11-18 13:54] LABS: CHLORIDE,CL 105 mmol/L (98-107); SODIUM,NA 139 mmol/L (136-145)
== END 2018-11-18 14:44 | disposition home or self-care (01) ==
LOC: MW.ED 12:59
DX: N30.01 Acute cystitis with hematuria (principal); R10.11 Right upper quadrant pain; E66.9 Obesity, unspecified; Z88.6 Allergy status to analgesic agent; Z96.22 Myringotomy tube(s) status; Z86.2 Personal history of diseases of the blood and blood-forming organs and certain disorders involving the immune mechanism
CPT/HCPCS: 36415; 80053; 81001; 81025; 83690; 85025; 87086; 99282; A9270; 99283

== ENCOUNTER 2018-12-02 06:47 | Day surgery (SDC) | payer BC ==
[~2018-12-02 06:47] MED LIST: Lactated Ringers 1,000 ML IV SCH; Sodium Chloride 0.9% 10 ML SDV IV PRN; Sodium Chloride 0.9% 10 ML Syringe FLUSH PRN; Sodium Chloride 0.9% 2.5 ML Syringe FLUSH PRN; ceFAZolin 2 GM in Premix Bag 1 BAG IV ONE
[2018-12-02] MEDS ORDERED: Rocuronium 100 MG/10 ML Syringe ONE (07:40)
[2018-12-02] MEDS ORDERED: Propofol 200 MG/20 ML SDV ONE (07:40)
[2018-12-02] MEDS ORDERED: Lidocaine 2% 5 ML SDV ONE (07:40)
[2018-12-02] MEDS ORDERED: Ondansetron 4 MG/2 ML SDV ONE (07:40)
[2018-12-02] MEDS ORDERED: fentaNYL 250 MCG/5 ML SDV ONE (07:41)
[2018-12-02] MEDS ORDERED: Midazolam 1 MG/ML 2 ML SDV ONE (07:41)
--- NOTE | 2018-12-02 07:44 | PCM.PREANE ---
Preanesthetic Assessment - Anesthesia/Transfusion/Family Hx Anesthesia History: Prior Anesthesia Without Reaction Other Type of Anesthesia Reaction Comment: "grandmother has hard time waking up " Family History of Anesthesia Reaction: No Transfusion History: No Prior Transfusion(s) Intubation History: Unknown - Review of Systems General: No Symptoms Pulmonary: No Symptoms Cardiovascular: No Symptoms Gastrointestinal: Abdominal Pain Neurological: No Symptoms Other: Reports: None - Physical Assessment Height: 5 ft 4 in Weight: 113.852 kg ASA Class: 2 Mental Status: Alert & Oriented x3 Airway Class: Mallampati = 3 Dentition: Reports: Normal Dentition (metal kruse behind 2 front upper incisors) Thyro-Mental Finger Breadths: 2 Mouth Opening Finger Breadths: 2 ROM/Head Extension: Full Lungs: Clear to Auscultation, Normal Respiratory Effort Cardiovascular: Regular Rate, Regular Rhythm - Allergies Allergies/Adverse Reactions: Allergies Allergy/AdvReac Type Severity Reaction Status Date / Time ibuprofen Allergy Nausea and Verified 11/28/18 09:14 Vomiting - Blood Blood Available: No - Anesthesia Plan Pre-Op Medication Ordered: None - Acknowledgements Anesthesia Type Planned: General Anesthesia Pt an Appropriate Candidate for the Planned Anesthesia: Yes Alternatives and Risks of Anesthesia Discussed w Pt/Guardian: Yes Pt/Guardian Understands and Agrees with Anesthesia Plan: Yes PreAnesthesia Questionnaire - Past Health History Medical/Surgical History: Denies Medical/Surgical History HEENT History: Reports: Impaired Vision, Other (See Below) Other HEENT History: wears glasses Cardiovascular History: Reports: None Respiratory History: Reports: None Gastrointestinal History: Reports: None Genitourinary History: Reports: Pyelonephritis, UTI, Recurrent CLINICAL COORDINATOR History: Reports: , Spontaneous Musculoskeletal History: Reports: None Neurological History: Reports: None Psychiatric History: Reports: None, Other (See Below) (h/o anxiety/depression) Endocrine/Metabolic History: Reports: Diabetes, Gestational, Obesity/BMI 30+ Hematologic History: Reports: Anemia Immunologic History: Reports: None Oncologic (Cancer) History: Reports: None Dermatologic History: Reports: None - Infectious Disease History Infectious Disease History: Reports: None - Past Surgical History Head Surgeries/Procedures: Reports: None HEENT Surgical History: Reports: Myringotomy w Tube(s), Other (See Below) Other HEENT Surgeries/Procedures: tympanoplasty x2 Cardiovascular Surgical History: Reports: None Respiratory Surgical History: Reports: None GI Surgical History: Reports: None Female Surgical History: Reports: Section Other Female Surgeries/Procedures: miscarriage x1, c/section x4 Endocrine Surgical History: Reports: None Neurological Surgical History: Reports: None Musculoskeletal Surgical History: Reports: None Oncologic Surgical History: Reports: None Dermatological Surgical History: Reports: None - SUBSTANCE USE Smoking Status *Q: Never Smoker Recreational Drug Use History: No - HOME MEDS Home Medications: Home Meds traMADol [Ultram] 50 mg PO Q6H PRN #12 tab 09/24/18 [Rx] Montelukast [Singulair] 10 mg PO DAILY 11/18/18 [History] Levonorgestrel-Ethin Estradiol [Levonor-Eth Estrad 0.15-0.03] 1 tab PO DAILY [History] - CURRENT (IN HOUSE) MEDS Current Meds: Current Medications Lactated Ringer's (Ringers, Lactated) 1,000 mls @ 125 mls/hr IV ASDIRECTED RIZWANA Sodium Chloride (Saline Flush) 10 ml FLUSH ASDIRECTED PRN PRN Reason: Keep Vein Open Sodium Chloride (Saline Flush) 2.5 ml FLUSH ASDIRECTED PRN PRN Reason: Keep Vein Open Sodium Chloride (Normal Saline) 10 ml IV ASDIRECTED PRN PRN Reason: IV Use Discontinued Medications Cefazolin Sodium/Dextrose 2 gm (/ Premix) 50 mls @ 100 mls/hr IV ONETIME ONE Stop: 11/29/18 15:23
[2018-12-02] MEDS ORDERED: Bupivacaine 0.5% 30 ML SDV ONE (08:49)
[2018-12-02] MEDS ORDERED: ceFAZolin/Dextrose,Iso-Osmotic 2 GM/50 ML Duplex Bag IV ONE (09:24)
[2018-12-02] MEDS ORDERED: Ketamine 500 mg/10 ML MDV ONE (09:32)
[2018-12-02] MEDS ORDERED: HYDROmorphone 2 MG/ML Syringe ONE (09:33)
[2018-12-02] MEDS ORDERED: Dexamethasone 4 MG/ML 5 ML MDV ONE (09:34)
[2018-12-02] MEDS ORDERED: diphenhydrAMINE 50 MG/ML SDV ONE (09:34)
[2018-12-02] MEDS ORDERED: Metoprolol Tartrate 5 MG/5 ML SDV ONE (09:58)
[2018-12-02] MEDS ORDERED: Atropine 0.1 MG/ML 10 ML Syringe IVPUSH PRN ×2 (10:05)
[2018-12-02] MEDS ORDERED: Naloxone 0.4 MG/ML Syringe IVPUSH PRN (10:05)
[2018-12-02] MEDS ORDERED: EPINEPHrine 1:10,000 1 MG/10 ML Syringe IVPUSH PRN (10:05)
[2018-12-02] MEDS ORDERED: Albuterol 0.083% 2.5 MG/3 ML Neb Soln NEB PRN (10:05)
[2018-12-02] MEDS ORDERED: 50% Dextrose in Water 50 ML Syringe IVPUSH PRN (10:05)
[2018-12-02] MEDS ORDERED: Promethazine 12.5 MG Supp RECTAL PRN (10:05)
[2018-12-02] MEDS ORDERED: HYDROmorphone 2 MG/ML Syringe IVPUSH PRN (10:05)
[2018-12-02] MEDS ORDERED: Glycopyrrolate 0.2 MG/ML SDV ONE (10:49)
[2018-12-02] MEDS ORDERED: Neostigmine Methylsulfate 1 MG/ML 5 ML Syringe ONE (10:49)
[2018-12-02] MEDS ORDERED: Acetaminophen/oxyCODONE 325-5 MG Tab PO PRN (11:06)
--- NOTE | 2018-12-02 11:08 | PCM.OPNOTE ---
- General Post-Op/Procedure Note Date of Surgery/Procedure: 12/02/18 Operative Procedure(s): Laparoscopic cholecystectomy Findings: Enlarged gallbladder with omental adhesions Pre Op Diagnosis: Symptomatic cholelithiasis Post-Op Diagnosis: same Anesthesia Technique: General ET Tube Primary Surgeon: Elissa Mayen Fluid Replacement, Intraop: 1,700 Output, Urine Amount: 110 EBL in mLs: 10 Condition: Good
[2018-12-02] MEDS: Labetalol 100 MG/20 ML MDV IVPUSH ONE ×2 (11:33→11:46)
[2018-12-02] MEDS: fentaNYL 100 MCG/2 ML SDV IVPUSH PRN ×2 (11:47→11:52)
--- NOTE | 2018-12-02 12:08 | PCM.POSTAN ---
POST ANESTHESIA ASSESSMENT - MENTAL STATUS Mental Status: Alert, Oriented - RESPIRATORY Respiratory Status: Respiratory Rate WNL, Airway Patent, O2 Saturation Stable - CARDIOVASCULAR CV Status: Pulse Rate WNL, Blood Pressure Stable - GASTROINTESTINAL GI Status: No Symptoms - PAIN Pain Score: 2 - POST OP HYDRATION Hydration Status: Adequate & Stable - OBSERVATIONS Free Text/Narrative:: no anesthesia problems
[2018-12-02] MEDS ORDERED: fentaNYL 100 MCG/2 ML SDV IVPUSH PRN (12:32)
[2018-12-02] MEDS ORDERED: Midazolam 1 MG/ML 2 ML SDV IVPUSH PRN (12:51)
[2018-12-02 15:45] VITALS: BP 127/74; PULSE 98
--- NOTE | 2018-12-02 17:24 | OR ---
SURGEON: SOFIA IRWIN MD DATE OF PROCEDURE: 12/02/2018 PREOPERATIVE DIAGNOSIS: Symptomatic cholelithiasis. POSTOPERATIVE DIAGNOSIS: Symptomatic cholelithiasis. PROCEDURE PERFORMED: Laparoscopic cholecystectomy. ANESTHESIA: General endotracheal anesthesia. FLUIDS: 1700 mL crystalloid. ESTIMATED BLOOD LOSS: 10 mL. URINE OUTPUT: 110 mL. FINDINGS: Enlarged intrahepatic gallbladder. Small amount of omental adhesions. COMPLICATIONS: None. INDICATIONS: The patient is a 33-year-old female who presented with symptomatic cholelithiasis. I discussed the need for a laparoscopic possible open cholecystectomy. I explained the procedure, expected perioperative course, and risks including bleeding, infection, or damage to surrounding structures. The patient verbalized understanding and wishes to proceed. PROCEDURE IN DETAIL: The patient was brought into the OR and placed on the OR table in supine position. A time-out was completed verifying the patient's name, age, date of , allergies, and procedure to be performed. General endotracheal anesthesia was induced. The left arm was tucked to the patient's side, and a Carlson catheter placed. The footboard was placed on the bed, and the patient's feet were taped to the footboard to secure them. The abdomen was prepped and draped in usual standard fashion. I anesthetized the infraumbilical fold with 0.5% Marcaine plain. An 11 blade was used to make an incision along this area. Cautery was used to dissect down to the level of subcutaneous fat. I then bluntly dissected down to the level of the fascia. The fascia was elevated with Kochers and incised sharply with Collier scissors. The peritoneum was identified. This was entered using a blunt dissection with a hemostat. Palpation on the abdomen was performed. 0 Vicryl sutures were placed on either side of the fascia to secure my Severiano trocar and to close the fascia later on in the case. A 12 mm Severiano trocar was inserted in the abdomen, and the abdomen insufflated. A 5 mm 30-degree scope was inserted. I inspected the area underneath my initial trocar placement. No damage to surrounding structures was noted. The patient was then placed into reverse Trendelenburg position and airplaned slightly to the left. Given her size, we checked the feet to ensure that they were on the table. The patient appeared appropriately secured. 5 mm trocars were placed under direct visualization in the following locations; one in the epigastric area, one in the right flank, and one 2 fingerbreadths below the right subcostal margin in the midclavicular line. The dome of the gallbladder was grasped and elevated cranially. There were omental adhesions along the body of the gallbladder wall. These were taken down using blunt dissection and hook cautery. Once the infundibulum was exposed, I then grasped it with an atraumatic grasper and began my dissection along the cystic triangle. The patient did have some inflammation along this area. Meticulous dissection was undertaken using hook cautery, blunt dissection with a Karyn and Nick. I cleared away my cystic duct and artery and 1/3rd of the proximal cystic plate. A photograph of this was taken. I then doubly clipped and ligated my cystic duct and artery. Electrocautery was then used to remove the gallbladder from its attachments to the gallbladder fossa. A small vein was encountered during this dissection, that was clipped with a single clip to control bleeding. The remainder of the attachments were able to be taken down using hook cautery. The gallbladder was then placed in an EndoCatch bag and removed through the 12 mm port site. During the process of putting the gallbladder in the bag, the clips on the cystic duct on the gallbladder fell off, and there was some bile spillage into the abdomen. The 12 mm Severiano trocar was placed back in the abdomen, and I inspected my operative field. I irrigated the abdomen with 1500 mL of normal saline until it ran clear. I then reinspected my operative field. There was some oozing along the edges of the gallbladder fossa. Using cautery and Surgicel, I was able to achieve hemostasis. My clips appeared to be in good position with no evidence of active bile leakage or bleeding. The 5 mm trocars were removed under direct visualization, and the abdomen allowed to desufflate. The 12 mm Severiano trocar was removed. I closed the infraumbilical port site with interrupted 0 Vicryl sutures in the fascial layer. The subcutaneous fat layer was closed with interrupted 3-0 Vicryl sutures. The skin was closed with a running 4-0 Monocryl stitch. Interrupted 4-0 Monocryl sutures were used to close my 5 mm port sites. Steri-Strips and sterile dressings were applied. All counts were complete and correct at the end of the case. The patient tolerated the procedure well and was taken to the PACU in stable condition. TAVIA BRYANT /[id number]
== END 2018-12-02 15:15 | disposition home or self-care (01) ==
LOC: MW.SDS 06:47
PROVIDERS: ATTEND Surgery
DX: K80.10 Calculus of gallbladder with chronic cholecystitis without obstruction (principal); E11.9 Type 2 diabetes mellitus without complications; E66.9 Obesity, unspecified; Z68.41 Body mass index [BMI] 40.0-44.9, adult; Z88.6 Allergy status to analgesic agent; Z79.3 Long term (current) use of hormonal contraceptives; Z79.899 Other long term (current) drug therapy
CPT/HCPCS: 47562; 81025; A9270; J0131; J0690; J1100; J1170; J1200; J2001; J2250; J2405; J2704; J3010; J3490; 00790; 88304

== ENCOUNTER 2019-02-05 16:09 | Emergency (ER) | payer OTHER, BC ==
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
[2019-02-05 18:08] VITALS: BP 168/99; PULSE 111
== END 2019-02-05 17:55 | disposition home or self-care (01) ==
LOC: MW.ED 16:09
DX: M79.652 Pain in left thigh (principal); M54.5 Low back pain; E66.9 Obesity, unspecified; Z68.41 Body mass index [BMI] 40.0-44.9, adult; Z79.899 Other long term (current) drug therapy; Z88.6 Allergy status to analgesic agent; V87.7XXA Person injured in collision between other specified motor vehicles (traffic), initial encounter
CPT/HCPCS: 96372; 99283; J2360; 99282

== ENCOUNTER 2019-07-01 17:17 | Emergency (ER) | payer BC ==
[2019-07-01] MEDS ORDERED: Sodium Chloride 0.9% 1,000 ML IV ONE (18:49)
[2019-07-01] MEDS ORDERED: Sodium Chloride 0.9% 2.5 ML Syringe FLUSH PRN (18:49)
[2019-07-01] MEDS ORDERED: Sodium Chloride 0.9% 10 ML Syringe FLUSH PRN (18:49)
[2019-07-01 19:34] LABS: BLOOD UREA NITROGEN,BUN 14 mg/dL (7.0-18.0); CARBON DIOXIDE,CO2 25.1 mmol/L (21.0-32.0); CHLORIDE,CL 103 mmol/L (98-107); GLUCOSE RANDOM 121 mg/dL (74-106); POTASSIUM,K 4.3 mmol/L (3.5-5.1); SODIUM,NA 140 mmol/L (136-145)
--- NOTE | 2019-07-01 21:17 | US ---
1st trimester obstetrical ultrasound: Multiple real-time images were obtained transvaginally. Comparison: No prior pelvic or obstetrical imaging. Small amount of debris is seen within the endometrial cavity. No gestational sac is noted. No decidual reaction is seen at this time. Ovaries appear within normal limits. No adnexal abnormalities are seen. Impression: 1. Small amount of debris within the endometrial cavity presumably due to blood. 2. No intrauterine gestational sac or adnexal or ovarian abnormalities are seen. Diagnostic code #2 This report was dictated in [place] Standard Time
--- NOTE | 2019-07-01 21:46 | EDM.PDOC ---
[facility] GENERAL MEDICAL PROBLEM - General Chief Complaint: NOTEMAN Problem Stated Complaint: KATE Time Seen by Provider: 07/01/19 20:00 Source of Information: Reports: Patient History Limitations: Reports: No Limitations - History of Present Illness INITIAL COMMENTS - FREE TEXT/NARRATIVE: Patient is 33-year-old female with past medical history of 1 prior miscarriage and 6 prior pregnancies presenting with a chief complaint of vaginal bleeding. Patient states the bleeding has been ongoing for the past 1 week. Patient is associated pelvic cramps. Patient started passing clots yesterday. Patient states bleeding has improved today. Patient was evaluated by PATHOLOGICAL TECHNICIAN and was told that her symptoms and labs were consistent with probably a 2 to 3-week . Patient denies any dizziness or lightheadedness. Patient was in contact with PATHOLOGICAL TECHNICIAN today and was instructed that she would likely need ER evaluation and RhoGam administration. Pmhx: Per HPI Pshx: 3 C-sections Family Hx: noncontributory Smoking history? no Etoh use? none Drug use? none In addition to that documented in the HPI above, the additional ROS was obtained : Constitutional: Denies fevers or chills Eyes: Denies vision changes ENMT: Denies sore throat CV: Denies chest pain Resp: Denies SOB GI: Denies vomiting or diarrhea : Denies painful urination MSK: Denies recent trauma Skin: Denies new rashes Neuro: Denies new numbness or tingling or weakness Endocrine: Denies unexpected weight loss Heme: Denies bleeding disorders I have reviewed the triage vital signs Const: Well nourished, well developed, appears stated age Eyes: PERRL, no conjunctival injection HENT: NCAT, Neck supple without meningismus CV: RRR, Warm, well-perfused extremities RESP: CTAB, Unlabored respiratory effort GI: soft, non-tender, non-distended, no masses MSK: No gross deformities appreciated Skin: Warm, dry. No rashes Neuro: Alert, court recorder II-XII grossly intact. Sensation and motor function of extremities grossly intact. Psych: Appropriate mood and affect Assessment and plan: Patient is 33-year-old female presenting with a chief complaint of vaginal bleeding and pelvic cramping. Patient is hemodynamically stable was little tachycardic on arrival but improved after IV fluid administration. Patient is well-appearing and not in distress. Patient's abdominal exam is unremarkable. Patient's labs and ultrasound are consistent with likely spontaneous . There is no evidence of significant anemia and no concern for ectopic at this point. Patient will be administered RhoGam in the ER and discharged with NOTEMAN follow-up. Patient given strict return precautions all questions addressed and answered. Patient agrees with plan. Abdomen Pain Score (Numeric/FACES): 3 - Related Data Allergies Allergy/AdvReac Type Severity Reaction Status Date / Time ibuprofen Allergy Nausea and Verified 02/05/19 16:53 Vomiting Home Meds: Home Meds Sertraline [Zoloft] 1 tab PO DAILY 07/01/19 [History] Past Medical History - Past Health History Medical/Surgical History: Denies Medical/Surgical History HEENT History: Reports: Impaired Vision, Other (See Below) Other HEENT History: wears glasses Cardiovascular History: Reports: None Respiratory History: Reports: None Gastrointestinal History: Reports: None Genitourinary History: Reports: Pyelonephritis, UTI, Recurrent NOTEMAN History: Reports: , Spontaneous Musculoskeletal History: Reports: None Neurological History: Reports: None Psychiatric History: Reports: None, Other (See Below) Endocrine/Metabolic History: Reports: Diabetes, Gestational, Obesity/BMI 30+ Hematologic History: Reports: Anemia Immunologic History: Reports: None Oncologic (Cancer) History: Reports: None Dermatologic History: Reports: None - Infectious Disease History Infectious Disease History: Reports: None - Past Surgical History Head Surgeries/Procedures: Reports: None HEENT Surgical History: Reports: Myringotomy w Tube(s), Other (See Below) Other HEENT Surgeries/Procedures: tympanoplasty x2 Cardiovascular Surgical History: Reports: None Respiratory Surgical History: Reports: None GI Surgical History: Reports: Cholecystectomy Female Surgical History: Reports: Section Other Female Surgeries/Procedures: miscarriage x1, c/section x4 Endocrine Surgical History: Reports: None Neurological Surgical History: Reports: None Musculoskeletal Surgical History: Reports: None Oncologic Surgical History: Reports: None Dermatological Surgical History: Reports: None Social & Family History - Family History Family Medical History: Noncontributory - Tobacco Use Smoking Status *Q: Never Smoker - Caffeine Use Caffeine Use: Reports: Soda - Recreational Drug Use Recreational Drug Use: No - Living Situation & Occupation Living situation: Reports: , with Spouse Occupation: Employed ED ROS GENERAL - Review of Systems Review Of Systems: See Below ED EXAM - Physical Exam Exam: See Below Course - Vital Signs Last Recorded V/S: Last Vital Signs Temp 36.6 C 07/01/19 21:10 Pulse 98 07/01/19 21:10 Resp 18 07/01/19 21:10 BP 136/94 H 07/01/19 21:10 Pulse Ox 99 07/01/19 21:10 - Orders/Labs/Meds Orders: Active Orders 24 hr Category Date Time Status SCREEN [BBK] Stat Lab 07/01/19 19:01 Results RH IMMUNE GLOBULIN [BBK] Stat Lab 07/01/19 19:01 Results RHOGAM, [RHIG WORKUP, ] [BBK] Stat Lab 07/01/19 21:25 Ordered TYPE AND SCREEN [BBK] Stat Lab 07/01/19 19:01 Results Sodium Chloride 0.9% [Saline Flush] Med 07/01/19 18:49 Active 10 ml FLUSH ASDIRECTED PRN Sodium Chloride 0.9% [Saline Flush] Med 07/01/19 18:49 Active 2.5 ml FLUSH ASDIRECTED PRN Saline Lock Insert [OM.PC] Stat Oth 07/01/19 18:49 Ordered Medication Orders Sodium Chloride (Saline Flush) 10 ml FLUSH ASDIRECTED PRN PRN Reason: Keep Vein Open Last Admin: 07/01/19 19:08 Dose: 10 ml Sodium Chloride (Saline Flush) 2.5 ml FLUSH ASDIRECTED PRN PRN Reason: Keep Vein Open Last Admin: 07/01/19 19:08 Dose: 2.5 ml Labs: Laboratory Tests 07/01/19 07/01/19 07/01/19 Range/Units 18:21 19:01 19:01 WBC 10.46 (4.0-11.0) K/uL RBC 5.36 (4.30-5.90) M/uL Hgb 14.4 (12.0-16.0) g/dL Hct 45.0 (36.0-46.0) % MCV 84.0 (80.0-98.0) fL MCH 26.9 L (27.0-32.0) pg MCHC 32.0 (31.0-37.0) g/dL RDW Std Deviation 43.1 (28.0-62.0) fl RDW Coeff of Jim 14 (11.0-15.0) % Plt Count 446 H (150-400) K/uL MPV 9.30 (7.40-12.00) fL Neut % (Auto) 54.5 (48.0-80.0) % Lymph % (Auto) 37.1 (16.0-40.0) % [place] % (Auto) 6.3 (0.0-15.0) % Eos % (Auto) 1.7 (0.0-7.0) % Baso % (Auto) 0.4 (0.0-1.5) % Neut # (Auto) 5.7 (1.4-5.7) K/uL Lymph # (Auto) 3.9 H (0.6-2.4) K/uL [place] # (Auto) 0.7 (0.0-0.8) K/uL Eos # (Auto) 0.2 (0.0-0.7) K/uL Baso # (Auto) 0.0 (0.0-0.1) K/uL Nucleated RBC % 0.0 /100WBC Nucleated RBCs # 0 K/uL Sodium 140 (136-145) mmol/L Potassium 4.3 (3.5-5.1) mmol/L Chloride 103 (98-107) mmol/L Carbon Dioxide 25.1 (21.0-32.0) mmol/L BUN 14 (7.0-18.0) mg/dL Creatinine 0.8 (0.6-1.0) mg/dL Est Cr Clr Drug Dosing 91.68 mL/min Estimated GFR (MDRD) > 60.0 ml/min Glucose 121 H (74-106) mg/dL Calcium 9.7 (8.5-10.1) mg/dL Total Bilirubin 0.2 (0.2-1.0) mg/dL AST 14 L (15-37) IU/L ALT 29 (14-63) IU/L Alkaline Phosphatase 92 (46-116) U/L Total Protein 8.7 H (6.4-8.2) g/dL Albumin 3.6 (3.4-5.0) g/dL Globulin 5.1 H (2.6-4.0) g/dL Albumin/Globulin Ratio 0.7 L (0.9-1.6) HCG, Qual (NEG) HCG, Quant mIU/mL Urine Color YELLOW Urine Appearance HAZY Urine pH 5.5 (5.0-8.0) Ur Specific [place] >= 1.030 (1.001-1.035) Urine Protein 30 H (NEGATIVE) mg/dL Urine Glucose (UA) NEGATIVE (NEGATIVE) mg/dL Urine Ketones NEGATIVE (NEGATIVE) mg/dL Urine Occult Blood SMALL H (NEGATIVE) Urine Nitrite NEGATIVE (NEGATIVE) Urine Bilirubin NEGATIVE (NEGATIVE) Urine Urobilinogen 0.2 (<2.0) EU/dL Ur Leukocyte Esterase NEGATIVE (NEGATIVE) Urine RBC 1-3 (0-2/HPF) Urine WBC 0-2 (0-5/HPF) Ur Epithelial Cells MODERATE (NONE-FEW) Urine Bacteria FEW (NEGATIVE) Urine Mucus MODERATE (NONE-MOD) Blood Type Antibody Screen 07/01/19 07/01/19 07/01/19 Range/Units 19:01 19:01 19:01 WBC (4.0-11.0) K/uL RBC (4.30-5.90) M/uL Hgb (12.0-16.0) g/dL Hct (36.0-46.0) % MCV (80.0-98.0) fL MCH (27.0-32.0) pg MCHC (31.0-37.0) g/dL RDW Std Deviation (28.0-62.0) fl RDW Coeff of Jim (11.0-15.0) % Plt Count (150-400) K/uL MPV (7.40-12.00) fL Neut % (Auto) (48.0-80.0) % Lymph % (Auto) (16.0-40.0) % [place] % (Auto) (0.0-15.0) % Eos % (Auto) (0.0-7.0) % Baso % (Auto) (0.0-1.5) % Neut # (Auto) (1.4-5.7) K/uL Lymph # (Auto) (0.6-2.4) K/uL [place] # (Auto) (0.0-0.8) K/uL Eos # (Auto) (0.0-0.7) K/uL Baso # (Auto) (0.0-0.1) K/uL Nucleated RBC % /100WBC Nucleated RBCs # K/uL Sodium (136-145) mmol/L Potassium (3.5-5.1) mmol/L Chloride (98-107) mmol/L Carbon Dioxide (21.0-32.0) mmol/L BUN (7.0-18.0) mg/dL Creatinine (0.6-1.0) mg/dL Est Cr Clr Drug Dosing mL/min Estimated GFR (MDRD) ml/min Glucose (74-106) mg/dL Calcium (8.5-10.1) mg/dL Total Bilirubin (0.2-1.0) mg/dL AST (15-37) IU/L ALT (14-63) IU/L Alkaline Phosphatase (46-116) U/L Total Protein (6.4-8.2) g/dL Albumin (3.4-5.0) g/dL Globulin (2.6-4.0) g/dL Albumin/Globulin Ratio (0.9-1.6) HCG, Qual POSITIVE H (NEG) HCG, Quant 6.0 mIU/mL Urine Color Urine Appearance Urine pH (5.0-8.0) Ur Specific [place] (1.001-1.035) Urine Protein (NEGATIVE) mg/dL Urine Glucose (UA) (NEGATIVE) mg/dL Urine Ketones (NEGATIVE) mg/dL Urine Occult Blood (NEGATIVE) Urine Nitrite (NEGATIVE) Urine Bilirubin (NEGATIVE) Urine Urobilinogen (<2.0) EU/dL Ur Leukocyte Esterase (NEGATIVE) Urine RBC (0-2/HPF) Urine WBC (0-5/HPF) Ur Epithelial Cells (NONE-FEW) Urine Bacteria (NEGATIVE) Urine Mucus (NONE-MOD) Blood Type A NEGATIVE Antibody Screen NEGATIVE Meds: Medications Generic Name Dose Route Start Last Admin Trade Name Freq PRN Reason Stop Dose Admin Sodium Chloride 10 ml 07/01/19 18:49 07/01/19 19:08 Saline Flush FLUSH 10 ml ASDIRECTED PRN Administration Keep Vein Open Sodium Chloride 2.5 ml 07/01/19 18:49 07/01/19 19:08 Saline Flush FLUSH 2.5 ml ASDIRECTED PRN Administration Keep Vein Open Discontinued Medications Generic Name Dose Route Start Last Admin Trade Name Freq PRN Reason Stop Dose Admin Sodium Chloride 1,000 mls @ 999 mls/hr 07/01/19 18:49 07/01/19 19:00 Normal Saline IV 07/01/19 19:49 999 mls/hr .Bolus ONE Administration Departure - Departure Time of Disposition: 21:46 Disposition: Home, Self-Care 01 Clinical Impression: Complete - Discharge Information Instructions: Miscarriage, [id number] Referrals: Jordan Lemus MD [Primary Care Provider] - Forms: ED Department Discharge Additional Instructions: The following information is given to patients seen in the emergency department who are being discharged to home. This information is to outline your options for follow-up care. We provide all patients seen in our emergency department with a follow-up referral. The need for follow-up, as well as the timing and circumstances, are variable depending upon the specifics of your emergency department visit. If you don't have a primary care physician on staff, we will provide you with a referral. We always advise you to contact your personal physician following an emergency department visit to inform them of the circumstance of the visit and for follow-up with them and/or the need for any referrals to a consulting specialist. The emergency department will also refer you to a specialist when appropriate. This referral assures that you have the opportunity for follow-up care with a specialist. All of these measure are taken in an effort to provide you with optimal care, which includes your follow-up. Under all circumstances we always encourage you to contact your private physician who remains a resource for coordinating your care. When calling for follow-up care, please make the office aware that this follow-up is from your recent emergency room visit. If for any reason you are refused follow-up, please contact the [facility] Emergency Department at and asked to speak to the emergency department charge nurse. Sepsis Event Note - Evaluation Sepsis Screening Result: No Definite Risk - Focused Exam Vital Signs: Vital Signs Temp Pulse Resp BP Pulse Ox 07/01/19 21:10 36.6 C 98 18 136/94 H 99 07/01/19 17:48 37.0 C 117 H 16 148/94 H 96 Date Exam was Performed: 07/01/19 Time Exam was Performed: 21:43 - My Orders Last 24 Hours: My Active Orders 07/01/19 21:25 RHOGAM, [RHIG WORKUP, ] [BBK] Stat - Assessment/Plan Last 24 Hours: My Active Orders 07/01/19 21:25 RHOGAM, [RHIG WORKUP, ] [BBK] Stat
[2019-07-01 22:54] VITALS: BP 147/98; PULSE 107
== END 2019-07-01 23:23 | disposition home or self-care (01) ==
LOC: MW.ED 17:17
DX: O03.9 Complete or unspecified spontaneous abortion without complication (principal); E66.9 Obesity, unspecified; Z88.8 Allergy status to other drugs, medicaments and biological substances; Z79.899 Other long term (current) drug therapy
CPT/HCPCS: 36415; 76817; 80053; 81001; 84702; 84703; 85025; 86850; 86900; 86901; 96360; 96361; 99284; J2792; J7030; 36430; 85460

== ENCOUNTER 2022-10-18 06:01 | Emergency (ER) | payer BC ==
[2022-10-18] MEDS ORDERED: Lactated Ringers 1,000 ML IV ONE (06:05)
[2022-10-18 06:15] LABS: APPEARANCE,URINE SLT CLOUDY; BILIRUBIN,URINE NEGATIVE (NEGATIVE); GLUCOSE,URINE NEGATIVE (NEGATIVE); KETONES,URINE TRACE mg/dL (NEGATIVE); LEUKOCYTE ESTERASE,URINE TRACE (NEGATIVE); NITRITE,URINE POSITIVE (NEGATIVE); OCCULT BLOOD,URINE TRACE-INTACT (NEGATIVE); PROTEIN,URINE TRACE mg/dL (NEGATIVE); UROBILINOGEN,URINE 0.2 EU/dL (<2.0)
[2022-10-18 06:18] LABS: COLOR,URINE AMBER
[2022-10-18] MEDS ORDERED: cefTRIAXone 1 GM in Sodium Chloride 0.9% 50 ML IV ONE (06:22)
[2022-10-18 06:25] LABS: BACTERIA,URINE 4+ (NEGATIVE); EPITHELIAL CELLS,URINE FEW (NONE-FEW); MUCUS,URINE FEW (NONE-MOD); RBC,URINE 0-2 (0-2/HPF)
[2022-10-18 06:42] LABS: BASOPHILS PERCENT AUTO 0.3 % (0.0-1.5); EOSINOPHILS ABSOLUTE AUTO 0.1 K/uL (0.0-0.7); EOSINOPHILS PERCENT AUTO 0.6 % (0.0-7.0); HEMATOCRIT 38.7 % (36.0-46.0); HEMOGLOBIN 12.8 g/dL (12.0-16.0); LYMPHOCYTES PERCENT AUTO 17.8 % (16.0-40.0); MEAN CORPUSCULAR HEMOGLOBIN 26.7 pg (27.0-32.0); MEAN CORPUSCULAR HGB CONC 33.1 g/dL (31.0-37.0); MEAN CORPUSCULAR VOLUME 80.6 fL (80.0-98.0); MONOCYTES ABSOLUTE AUTO 1.1 K/uL (0.0-0.8); MONOCYTES PERCENT AUTO 9.5 % (0.0-15.0); NEUTROPHILS ABSOLUTE AUTO 8.2 K/uL (1.4-5.7); NEUTROPHILS PERCENT AUTO 71.8 % (48.0-80.0); NRBC ABSOLUTE 0 K/uL; PLATELET COUNT,PLT 316 K/uL (150-400); WHITE BLOOD CELL COUNT,WBC 11.43 K/uL (4.0-11.0)
[2022-10-18 07:04] LABS: A/G RATIO 0.7 (0.9-1.6); ALBUMIN 3.4 g/dL (3.4-5.0); BILIRUBIN TOTAL 0.6 mg/dL (0.2-1.0); CARBON DIOXIDE,CO2 23.3 mmol/L (21.0-32.0); EST CRCL DRUG DOSING (CG) 71.33 mL/min; POTASSIUM,K 3.8 mmol/L (3.5-5.1); PROTEIN TOTAL,TP 8.2 g/dL (6.4-8.2)
[2022-10-18] MEDS ORDERED: Acetaminophen 500 MG Tab PO ONE (09:47)
[2022-10-18 09:58] VITALS: BP 143/88; PULSE 93
== END 2022-10-18 10:05 | disposition home or self-care (01) ==
LOC: MW.ED 06:01
DX: N12 Tubulo-interstitial nephritis, not specified as acute or chronic (principal); E66.9 Obesity, unspecified; Z68.42 Body mass index [BMI] 45.0-49.9, adult; Z88.6 Allergy status to analgesic agent
CPT/HCPCS: 36415; 80053; 81001; 83690; 84703; 85025; 87040; 87086; 87088; 87186; 96361; 96365; 99284; A9270; J0696; J3490; J7120; 99283

== ENCOUNTER 2024-04-23 10:12 | Emergency (ER) | payer BC ==
[2024-04-23 11:12] LABS: BILIRUBIN,URINE NEGATIVE (NEGATIVE); COLOR,URINE YELLOW; GLUCOSE,URINE NEGATIVE (NEGATIVE); KETONES,URINE NEGATIVE (NEGATIVE); LEUKOCYTE ESTERASE,URINE NEGATIVE (NEGATIVE); NITRITE,URINE NEGATIVE (NEGATIVE); OCCULT BLOOD,URINE NEGATIVE (NEGATIVE); PROTEIN,URINE NEGATIVE (NEGATIVE); UROBILINOGEN,URINE 0.2 EU/dL (<2.0)
[2024-04-23 11:13] LABS: APPEARANCE,URINE HAZY
[2024-04-23] MEDS: Sodium Chloride 0.9% 1,000 ML IV ONE (11:55)
[2024-04-23 12:15] LABS: BASOPHILS ABSOLUTE AUTO 0.06 K/uL (0.00-0.20); BASOPHILS PERCENT AUTO 0.7 % (0.0-1.0); EOSINOPHILS ABSOLUTE AUTO 0.12 K/uL (0.00-0.45); EOSINOPHILS PERCENT AUTO 1.5 % (0.0-6.0); HEMATOCRIT 38.8 % (37.0-47.0); IMMATURE GRAN ABSOLUTE AUTO 0.02 K/uL (0.00-0.05); IMMATURE GRAN PERCENT AUTO 0.2 % (0.0-0.4); LYMPHOCYTES PERCENT AUTO 39.7 % (24.0-44.0); MEAN CORPUSCULAR HGB CONC 33.5 g/dL (32.0-36.0); MEAN CORPUSCULAR VOLUME 80.5 fL (83.0-99.0); MEAN PLATELET VOLUME 8.9 fL (9.4-12.3); MONOCYTES ABSOLUTE AUTO 0.52 K/uL (0.00-0.80); MONOCYTES PERCENT AUTO 6.5 % (0.0-8.0); NEUTROPHILS ABSOLUTE AUTO 4.14 K/uL (1.80-7.70); NEUTROPHILS PERCENT AUTO 51.4 % (41.0-71.0); PLATELET COUNT,PLT 342 K/uL (150-400); RED BLOOD CELL COUNT 4.82 M/uL (4.10-5.30); WHITE BLOOD CELL COUNT,WBC 8.06 K/uL (3.9-11.3)
[2024-04-23] MEDS: Ondansetron 4 MG/2 ML SDV IVPUSH ONE (12:32)
[2024-04-23 12:44] LABS: LACTIC ACID 0.7 mmol/L (0.4-2.0)
[2024-04-23 12:51] LABS: A/G RATIO 0.8 (0.9-1.6); ALBUMIN 3.4 g/dL (3.4-5.0); BILIRUBIN TOTAL 0.3 mg/dL (0.2-1.0); CALCIUM 9.4 mg/dL (8.5-10.1); CARBON DIOXIDE,CO2 27.1 mmol/L (21.0-32.0); CREATININE 0.8 mg/dL (0.6-1.0); EST CRCL DRUG DOSING (CG) 83.95 mL/min; PROTEIN TOTAL,TP 7.7 g/dL (6.4-8.2)
[2024-04-23 14:16] LABS: CANDIDA DNA PROBE NEGATIVE (NEGATIVE); GARDNERELLA DNA PROBE NEGATIVE (NEGATIVE); TRICHOMONAS DNA PROBE NEGATIVE (NEGATIVE)
[2024-04-23 18:01] VITALS: BP 150/100; PULSE 80
== END 2024-04-23 16:16 | disposition home or self-care (01) ==
LOC: MW.ED 10:12
DX: R30.0 Dysuria (principal); E66.9 Obesity, unspecified; Z90.49 Acquired absence of other specified parts of digestive tract; Z79.899 Other long term (current) drug therapy; Z88.6 Allergy status to analgesic agent; Z75.8 Other problems related to medical facilities and other health care; Z68.42 Body mass index [BMI] 45.0-49.9, adult
CPT/HCPCS: 36415; 74176; 80053; 81003; 81025; 83605; 85025; 87480; 87510; 87660; 96361; 96374; 99284; J2405; J7030; 99283